=== PATIENT | male | born 1965 ===

== ENCOUNTER 2016-10-16 05:48 | Inpatient (IN) | payer OTHER ==
[2016-10-16] MEDS ORDERED: Iohexol 240 (50 ml) PO ONE (06:23)
[2016-10-16] MEDS ORDERED: Morphine 4 MG/ML VIAL ONE (06:30)
--- NOTE | 2016-10-16 06:42 | ED PDOC ---
HPI: Abdomen Time Seen by Provider: 10/16/16 05:49 Chief Complaint (Nursing): Abdominal Pain Chief Complaint (Provider): Back, abdominal, and chest pain History Per: Patient History/Exam Limitations: no limitations Onset/Duration Of Symptoms: Hrs Additional Complaint(s): Patient is a 50 year old male presenting to the emergency department for abdominal, chest, and back pain that started this morning. Reports that symptoms are the same when eating. Denies fever, vomiting, diarrhea, diabetes, asthma, surgical history, and allergies. PCP: none provided. Past Medical History Reviewed: Historical Data, Nursing Documentation, Vital Signs Vital Signs: Last Vital Signs Temp 99 F 10/17/16 16:13 Pulse 70 10/17/16 16:13 Resp 18 10/17/16 16:13 BP 155/79 H 10/17/16 16:13 Pulse Ox 97 10/17/16 16:13 - Medical History PMH: Denies: Asthma, Diabetes - Surgical History Surgical History: No Surg Hx - Family History Family History: States: Unknown Family Hx - Social History Current smoker - smoking cessation education provided: No Ex-Smoker (has not smoked in the last 12 months): No Alcohol: Social Drugs: Denies - Home Medications Home Medications: Ambulatory Orders Medication Instructions Recorded No Known Home Med 10/16/16 - Allergies Allergies/Adverse Reactions: Allergies Allergy/AdvReac Type Severity Reaction Status Date / Time No Known Allergies Allergy Verified 10/16/16 06:11 Review of Systems ROS Statement: Except As Marked, All Systems Reviewed And Found Negative Constitutional: Negative for: Fever Cardiovascular: Positive for: Chest Pain Gastrointestinal: Positive for: Nausea, Abdominal Pain. Negative for: Vomiting , Diarrhea Musculoskeletal: Positive for: Back Pain Physical Exam - Reviewed Nursing Documentation Reviewed: Yes Vital Signs Reviewed: Yes - Physical Exam Appears: Positive for: No Acute Distress Head Exam: Positive for: ATRAUMATIC, NORMAL INSPECTION, NORMOCEPHALIC Skin: Positive for: Normal Color, Warm, Dry Eye Exam: Positive for: Scleral icterus (slightly) Neck: Positive for: Normal, Supple Cardiovascular/Chest: Positive for: Regular Rate, Rhythm. Negative for: Murmur Respiratory: Positive for: Normal Breath Sounds. Negative for: Accessory Muscle Use, Respiratory Distress Gastrointestinal/Abdominal: Positive for: Soft, Tenderness (mild tenderness on epigastric area) Neurologic/Psych: Positive for: Alert, Oriented - Laboratory Results Result Diagrams: 10/17/16 05:30 10/17/16 05:30 - ECG O2 Sat by Pulse Oximetry: 98 (RA) Pulse Ox Interpretation: Normal Medical Decision Making Medical Decision Making: Time: 06:22 Initial Impression: abdominal pain rule out pancreatitis and possible jaundice Initial Plan: -Abdominal/pelvis CT Scan -Labs -Pepcid 20 mg IVP -Urine Culture -Urinalysis -Reevaluation Scribe Attestation: Documented by Monica Bird, acting as a scribe for Patric Duong MD Provider Scribe Attestation: All medical record entries made by the Scribe were at my direction and personally dictated by me. I have reviewed the chart and agree that the record accurately reflects my personal performance of the history, physical exam, medical decision making, and the department course for this patient. I have also personally directed, reviewed, and agree with the discharge instructions and disposition. Disposition - Clinical Impression Clinical Impression: Acute pancreatitis - Patient ED Disposition Is Patient to be Admitted: Transfer of Care - Disposition Disposition: Transfer of Care Disposition Time: 07:00 Condition: GUARDED Patient Signed Over To: Iris Lloyd
[2016-10-16 06:44] LABS: BASO % 0.1 % (0.0-2.0); EOS % 0.1 % (0.0-4.0); HEMATOCRIT 42.2 % (35.0-51.0); LYMPH % 8.6 % (20.0-40.0); MEAN CELL VOLUME 89.1 fl (80.0-94.0); MEAN CORPUSCULAR HEMOGLOBIN 30.2 pg (27.0-31.0); MEAN CORPUSCULAR HGB CONC 33.9 g/dL (33.0-37.0); MONO # 0.8 K/uL (0.0-0.8); NEUT # 9.7 K/uL (1.8-7.0); NEUT % 84.2 % (50.0-75.0); PLATELET COUNT 143 K/uL (130-400); RED CELL DISTRIBUTION WIDTH 13.1 % (11.5-14.5); WHITE BLOOD COUNT 11.5 K/uL (4.8-10.8)
[2016-10-16 06:53] LABS: ALB/GLOB RATIO 1.3 (1.0-2.1); ALKALINE PHOSPHATASE 174 U/L (38-126); ALT/SGPT 514 U/L (21-72); AST/SGOT 671 U/L (17-59); BILIRUBIN,TOTAL 3.3 mg/dl (0.2-1.3); BLOOD UREA NITROGEN 13 mg/dl (9-20); CARBON DIOXIDE 25 mmol/L (22-30); CHLORIDE 104 mmol/L (98-107); GFR AFRICAN-AMERICAN > 60; GLUCOSE,RANDOM 144 mg/dL (75-110); POTASSIUM 4.7 MMOL/L (3.6-5.0); SODIUM 139 mmol/l (132-148); TOTAL PROTEIN 7.7 G/DL (6.3-8.2)
[2016-10-16 07:02] LABS: RBC URINE 3 /hpf (0-3); URINE BACTERIA RARE (<OCC); URINE BILIRUBIN NEGATIVE (NEGATIVE); URINE BLOOD NEGATIVE (NEGATIVE); URINE COLOR YELLOW (YELLOW); URINE GLUCOSE (UA) NEG (Normal); URINE KETONE NEGATIVE (NEGATIVE); URINE LEUKOCYTE ESTERASE NEG Leu/uL (Negative); URINE PROTEIN NEGATIVE (NEGATIVE); URINE UROBILINOGEN 0.2-1.0 mg/dL (0.2-1.0); WBC URINE 1 /hpf (0-5)
[2016-10-16 07:30] LABS: LIPASE 34656 U/L (23-300)
--- NOTE | 2016-10-16 07:44 | ED PDOC ---
- Laboratory Results Result Diagrams: 10/16/16 06:26 10/16/16 06:26 - ECG O2 Sat by Pulse Oximetry: 98 (RA) Medical Decision Making Medical Decision Making: received patient from Dr. Duong. Patient has h/o EtOH use. Has elevated LFTs and abdominal pain. He is pending CT scan of the abdomen/pelvis. Lipase level > 35,000. Will need admission to hospitalist for further treatment 9.45a - CT scan shows acute pancreatitis. patient is hemodynamically stable. Will admit Disposition Doctor Will See Patient In The: Hospital - Clinical Impression Clinical Impression: Acute pancreatitis - POA Present On Arrival: None - Disposition Disposition: Routine/Home Disposition Time: 10:11 Condition: GUARDED
[2016-10-16] MEDS: Lactated Ringer's 1,000 ML IV SCH ×5 (08:15→23:45)
[2016-10-16 08:16] LABS: NEUTROPHIL 84 % (42-75); TOTAL CELLS COUNTED 100
[2016-10-16 08:40] LABS: VENOUS BLOOD GAS BASE EXCESS 4.2 mmol/L (0.0-2.0); VENOUS BLOOD GAS PCO2 55 mmHg (40-60); VENOUS BLOOD PH 7.36 (7.32-7.43)
[2016-10-16] MEDS ORDERED: Sodium Chloride 0.9% 50 ML IV ONE (08:44)
[2016-10-16] MEDS ORDERED: Iohexol 300 100 ML IJ ONE (08:44)
[2016-10-16 09:28] LABS: PARTIAL THROMBOPLASTIN TIME 24.2 Seconds (25.6-37.1)
--- NOTE | 2016-10-16 09:50 | CT ---
PROCEDURE: CT Abdomen and Pelvis with contrast HISTORY: abdominal pain COMPARISON: None. TECHNIQUE: Contrast dose: 95 cc of Omni 300 Radiation dose: Total exam DLP = 776 mGy-cm. This CT exam was performed using one or more of the following dose reduction techniques: Automated exposure control, adjustment of the mA and/or kV according to patient size, and/or use of iterative reconstruction technique. FINDINGS: LOWER THORAX: Unremarkable. LIVER: Unremarkable. No gross lesion or ductal dilatation. GALLBLADDER AND BILE DUCTS: Gallbladder is mildly distended. The common duct is normal in caliber. PANCREAS: There is diffuse swelling of the pancreas and a moderate amount of peripancreatic fluid and inflammation. Findings are consistent with acute pancreatitis. SPLEEN: Unremarkable. ADRENALS: Unremarkable. No mass. KIDNEYS AND URETERS: Unremarkable. No hydronephrosis. No solid mass. VASCULATURE: Unremarkable. No aortic aneurysm. BOWEL: Unremarkable. No obstruction. No gross mural thickening. APPENDIX: Normal appendix. PERITONEUM: Unremarkable. No free fluid. No free air. LYMPH NODES: Unremarkable. No enlarged lymph nodes. BLADDER: Unremarkable. REPRODUCTIVE: Unremarkable. BONES: No acute fracture. OTHER FINDINGS: None. IMPRESSION: There is diffuse swelling of the pancreas and a moderate amount of peripancreatic fluid and inflammation. Findings are consistent with acute pancreatitis.
--- NOTE | 2016-10-16 10:30 | CP.PCM.HP ---
History of Present Illness - History of Present Illness History of Present Illness: Chief Complaint: stomach pain HPI: 50 year old male with no past medical history presents with moderate to severe dull midepigastric abdominal pain radiating to the back about 10 hours ago. This was associated with anorexia and nausea, no emesis, chills. Pt states he used to be a regular drinker about 2 years ago, and now only drinks about once a week, 10 beers. The last drink patient had was 20 days ago, 10 beers. Patient has had this pain in the past 2 years ago but it would resolve. Pt is HD stable , NAD. In ER, LIPASE 60606, WBC 11.5, AST/ALT 671/514, BILI 3.3, vitals: 99.1 80 150/81 , 17 98% RA. CT scan + pancreatitis with peripancreatic fluid. Gallbladder mildly distended. ROS: as per HPI, all other systems reviewed and negative by me PMH: DENIES PSH: DENIES Family History: DENIES Social History: ETOH regular use 2 years ago, now drinks about once a week 10 beers at a time Home Medications: NONE Allergies: NKDA Temp Pulse Resp BP Pulse Ox 99.1 F 80 17 150/81 98 10/16/16 06:04 10/16/16 06:04 10/16/16 06:04 10/16/16 06:04 10/16/16 10:16 Constitutional- cooperative, awake, alert. Head- NCAT, PERRL Eye- PERRL, normal accommodation ENT- normal exam, MMM. Neck- normal inspection, supple, no JVD Respiratory- CTAB, no wheezes rales rhonchi Cardiovascular- RRR, +S1, +S2 no MRG GI/Abdominal- normal bowel sounds, soft Skin- warm, dry Extremities Exam- normal capillary refill, normal inspection Neurological Exam- alert, oriented Psych- normal mood, normal affect Labs: 10/16/16 06:26 10/16/16 06:26 PT 11.7 Seconds (9.8-13.1) 10/16/16 08:23 INR 1.1 (0.9-1.2) 10/16/16 08:23 APTT 24.2 Seconds (25.6-37.1) L 10/16/16 08:23 08/10/16/16 10/16/16 08:35 08:23 06:38 WBC RBC Hgb Hct MCV MCH MCHC RDW Plt Count MPV Neut % (Auto) Lymph % (Auto) [place] % (Auto) Eos % (Auto) Baso % (Auto) Neut # Lymph # [place] # Eos # Baso # Neutrophils % (Manual) Band Neutrophils % Lymphocytes % (Manual) Monocytes % (Manual) Platelet Estimate PT 11.7 INR 1.1 APTT 24.2 L pO2 15 L VBG pH 7.36 VBG pCO2 55 VBG HCO3 26.0 VBG Total CO2 32.8 H VBG O2 Sat (Calc) 24.0 L VBG Base Excess 4.2 H VBG Potassium 4.9 Glucose 153 H Lactate 1.5 FiO2 21.0 Sodium 135.0 Potassium Chloride 102.0 Carbon Dioxide Anion Gap BUN Creatinine Est GFR ( Amer) Est GFR (Non-Af Amer) Random Glucose Calcium Total Bilirubin AST ALT Alkaline Phosphatase Total Protein Albumin Globulin Albumin/Globulin Ratio Lipase Venous Blood Potassium 4.9 Urine Color Yellow Urine Clarity Cloudy Urine pH 7.0 Ur Specific [place] 1.013 Urine Protein Negative Urine Glucose (UA) Neg Urine Ketones Negative Urine Blood Negative Urine Nitrate Negative Urine Bilirubin Negative Urine Urobilinogen 0.2-1.0 Ur Leukocyte Esterase Neg Urine RBC (Auto) 3 Urine Microscopic WBC 1 Urine Bacteria Rare 10/16/16 10/16/16 06:26 06:26 WBC 11.5 H RBC 4.74 Hgb 14.3 Hct 42.2 MCV 89.1 MCH 30.2 MCHC 33.9 RDW 13.1 Plt Count 143 MPV 9.0 Neut % (Auto) 84.2 H Lymph % (Auto) 8.6 L [place] % (Auto) 7.0 Eos % (Auto) 0.1 Baso % (Auto) 0.1 Neut # 9.7 H Lymph # 1.0 [place] # 0.8 Eos # 0.0 Baso # 0.0 Neutrophils % (Manual) 84 H Band Neutrophils % 2 Lymphocytes % (Manual) 7 L Monocytes % (Manual) 7 Platelet Estimate Normal PT INR APTT pO2 VBG pH VBG pCO2 VBG HCO3 VBG Total CO2 VBG O2 Sat (Calc) VBG Base Excess VBG Potassium Glucose Lactate FiO2 Sodium 139 Potassium 4.7 Chloride 104 Carbon Dioxide 25 Anion Gap 16 BUN 13 Creatinine 0.8 Est GFR ( Amer) > 60 Est GFR (Non-Af Amer) > 60 Random Glucose 144 H Calcium 9.0 Total Bilirubin 3.3 H AST 671 H ALT 514 H Alkaline Phosphatase 174 H Total Protein 7.7 Albumin 4.4 Globulin 3.3 Albumin/Globulin Ratio 1.3 Lipase 77395 H Venous Blood Potassium Urine Color Urine Clarity Urine pH Ur Specific [place] Urine Protein Urine Glucose (UA) Urine Ketones Urine Blood Urine Nitrate Urine Bilirubin Urine Urobilinogen Ur Leukocyte Esterase Urine RBC (Auto) Urine Microscopic WBC Urine Bacteria Imaging Studies: CT ABD : + PANCREATITIS WITH PERIPANCREATIC FLUID Active Medications: Allergies No Known Allergies Allergy (Verified 10/16/16 06:11) Height & Weight Height 5 ft 7 in Weight 165 lb Start Date/Time Active Medications 10/16/16 07:45 Lactated Ringer's 1,000 ml IV 250 mls/hr 10/16/16 10:30 Ibuprofen [Motrin Tab] 400 mg PO Q6 PRN Ketorolac [Toradol] 30 mg IVP Q6 PRN 10/17/16 09:00 Enoxaparin [Lovenox] 40 mg SC DAILY Assessment and Plan: 50 year old male with no past medical history presents with moderate to severe dull midepigastric abdominal pain radiating to the back about 10 hours ago. This was associated with anorexia and nausea, no emesis, chills. Pt states he used to be a regular drinker about 2 years ago, and now only drinks about once a week, 10 beers. The last drink patient had was 20 days ago, 10 beers. Patient has had this pain in the past 2 years ago but it would resolve. Pt is HD stable , NAD. In ER, LIPASE 84254, WBC 11.5, AST/ALT 671/514, BILI 3.3, vitals: 99.1 80 150/81 , 17 98% RA. CT scan + pancreatitis with peripancreatic fluid. Gallbladder mildly distended. PANCREATITIS, alcoholic vs. gallstone pt intially presented with severe abd pain, LIPASE 03502, WBC 11.5, AST/ALT 671 /514, BILI 3.3, vitals: 99.1 80 150/81, 17 98% RA. CT scan + pancreatitis with peripancreatic fluid. Gallbladder mildly distended. Lactated Ringers @ 250cc/hr pt continues to be anorexic NPO monitor repeat CBC CMP ELEVATED TRANSAMINASES AST/ALT 671/514, BILI 3.3 monitor VTE PPX lovenox Present on Admission - Present on Admission Any Indicators Present on Admission: No Past Patient History - Past Social History Alcohol: Social Drugs: Denies - PULMONARY Hx Asthma: No - PSYCHIATRIC Hx Substance Use: No Meds Allergies/Adverse Reactions: Allergies Allergy/AdvReac Type Severity Reaction Status Date / Time No Known Allergies Allergy Verified 10/16/16 06:11 Results - Vital Signs Recent Vital Signs: Last Vital Signs Temp 99.1 F 10/16/16 06:04 Pulse 80 10/16/16 06:04 Resp 17 10/16/16 06:04 BP 150/81 10/16/16 06:04 Pulse Ox 98 10/16/16 10:16 - Labs Result Diagrams: 10/16/16 06:26 10/16/16 06:26
[2016-10-16] MEDS ORDERED: Pneumococcal 23-Valent Vaccine IM ONE (12:41)
[2016-10-17] MEDS: Lactated Ringer's 1,000 ML IV SCH ×3 (01:48→06:21)
[2016-10-17 06:11] LABS: BASO % 0.2 % (0.0-2.0); EOS # 0.1 K/uL (0.0-0.7); EOS % 1.8 % (0.0-4.0); LYMPH # 1.1 K/uL (1.0-4.3); LYMPH % 22.2 % (20.0-40.0); MEAN CELL VOLUME 90.4 fl (80.0-94.0); MEAN CORPUSCULAR HEMOGLOBIN 30.4 pg (27.0-31.0); MEAN CORPUSCULAR HGB CONC 33.6 g/dL (33.0-37.0); MEAN PLATELET VOLUME 9.2 fl (7.2-11.7); MONO # 0.4 K/uL (0.0-0.8); MONO % 8.2 % (0.0-10.0); NEUT # 3.2 K/uL (1.8-7.0); NEUT % 67.6 % (50.0-75.0); NRBC % 0.1 % (0.0-0.0); RED CELL DISTRIBUTION WIDTH 13.4 % (11.5-14.5); WHITE BLOOD COUNT 4.8 K/uL (4.8-10.8)
[2016-10-17 06:18] LABS: ALB/GLOB RATIO 1.1 (1.0-2.1); ALKALINE PHOSPHATASE 181 U/L (38-126); ALT/SGPT 355 U/L (21-72); AST/SGOT 212 U/L (17-59); BILIRUBIN,TOTAL 7.8 mg/dl (0.2-1.3); BLOOD UREA NITROGEN 7 mg/dl (9-20); CALCIUM 8.5 mg/dL (8.4-10.2); CARBON DIOXIDE 27 mmol/L (22-30); CHLORIDE 106 mmol/L (98-107); GFR AFRICAN-AMERICAN > 60; GLUCOSE,RANDOM 94 mg/dL (75-110); POTASSIUM 4.1 MMOL/L (3.6-5.0); SODIUM 140 mmol/l (132-148); TOTAL PROTEIN 6.6 G/DL (6.3-8.2)
[2016-10-17 06:30] LABS: PARTIAL THROMBOPLASTIN TIME 26.8 Seconds (25.6-37.1)
[2016-10-17] MEDS: Enoxaparin 40 mg Syringe SC SCH (08:54)
--- NOTE | 2016-10-17 15:56 | CP.PCM.PN ---
Objective - Vital Signs/Intake and Output Vital Signs (last 24 hours): Temp Pulse Resp BP Pulse Ox 98.8 F 72 20 137/80 97 10/17/16 07:49 10/17/16 07:49 10/17/16 07:49 10/17/16 07:49 10/17/16 07:49 - Medications Medications: Current Medications Enoxaparin Sodium (Lovenox) 40 mg SC DAILY BETY PRN Reason: Protocol Last Admin: 10/17/16 08:54 Dose: 40 mg Ibuprofen (Motrin Tab) 400 mg PO Q6 PRN PRN Reason: Fever >100.4 F Ketorolac Tromethamine (Toradol) 30 mg IVP Q6 PRN PRN Reason: PAIN 4-10 - Labs Labs: 10/17/16 05:30 10/17/16 05:30 PT 13.3 Seconds (9.8-13.1) H 10/17/16 05:30 INR 1.3 (0.9-1.2) H 10/17/16 05:30 APTT 26.8 Seconds (25.6-37.1) 10/17/16 05:30 Assessment and Plan - Assessment and Plan (Free Text) Assessment: 50 year old male with no past medical history presents with moderate to severe dull midepigastric abdominal pain radiating to the back about 10 hours ago. This was associated with anorexia and nausea, no emesis, chills. Pt states he used to be a regular drinker about 2 years ago, and now only drinks about once a week, 10 beers. The last drink patient had was 20 days ago, 10 beers. Patient has had this pain in the past 2 years ago but it would resolve. Pt is HD stable , NAD. In ER, LIPASE 79931, WBC 11.5, AST/ALT 671/514, BILI 3.3, vitals: 99.1 80 150/81 , 17 98% RA. CT scan + pancreatitis with peripancreatic fluid. Gallbladder mildly distended. PANCREATITIS, alcoholic vs. gallstone pt intially presented with severe abd pain, LIPASE 94424, WBC 11.5, AST/ALT 671 /514, BILI 3.3, vitals: 99.1 80 150/81, 17 98% RA. CT scan + pancreatitis with peripancreatic fluid. Gallbladder mildly distended. Lactated Ringers @ 250cc/hr pt continues to be anorexic NPO monitor repeat CBC CMP ELEVATED TRANSAMINASES AST/ALT 671/514, BILI 3.3 monitor VTE PPX lovenox
--- NOTE | 2016-10-17 18:12 | MRI ---
PROCEDURE: Magnetic Resonance Cholangiopancreatography HISTORY: COMPARISON: Comparison is made to the previous CT dated 10/16/2016.. TECHNIQUE: Multiplanar, multisequence MR images of the abdomen were obtained, including heavily T2 weighted MRCP images of the biliary system. Rotating maximum intensity projection images of the biliary system were generated. FINDINGS: MRCP: The common bile duct is of a normal caliber. No evidence of choledocholithiasis. No intrahepatic biliary ductal dilatation. LIVER: Unremarkable. GALLBLADDER: The gallbladder is mildly to moderately distended contains multiple small gallstones. There is no evidence of significant pericholecystic fluid or inflammatory changes to suggest acute cholecystitis. SPLEEN: Unremarkable. PANCREAS: The pancreas is again mildly enlarged surrounding with inflammatory changes suggestive of acute pancreatitis. The main pancreatic duct is not dilated. ADRENALS: Unremarkable. KIDNEYS: Unremarkable. AORTA: No aneurysm. ASCITES: There is a trace amount of ascites in the upper abdomen likely due to acute pancreatitis. OTHER FINDINGS: None. IMPRESSION: Distended gallbladder contains multiple gallstones without MRI evidence of acute cholecystitis. No evidence of choledocholithiasis. The biliary tree is not distended. Findings again suggestive of acute pancreatitis. Small amount of free fluid in the upper abdomen.
--- NOTE | 2016-10-18 08:07 | CP.PCM.PN ---
Subjective - Date & Time of Evaluation Date of Evaluation: 10/17/16 Time of Evaluation: 17:35 - Subjective Subjective: patient feeling improved, does have pain feeling hungry, no nausea, emesis will start clears bili elevated from 3 to 7, will order MRCP GI consult Dr. Dowd HD stable NAD Objective - Vital Signs/Intake and Output Vital Signs (last 24 hours): Temp Pulse Resp BP Pulse Ox 98.1 F 65 20 134/75 97 10/18/16 01:00 10/18/16 01:00 10/18/16 01:00 10/18/16 01:00 10/18/16 01:00 - Medications Medications: Current Medications Enoxaparin Sodium (Lovenox) 40 mg SC DAILY BETY PRN Reason: Protocol Last Admin: 10/17/16 08:54 Dose: 40 mg Ibuprofen (Motrin Tab) 400 mg PO Q6 PRN PRN Reason: Fever >100.4 F Ketorolac Tromethamine (Toradol) 30 mg IVP Q6 PRN PRN Reason: PAIN 4-10 - Labs Labs: 10/17/16 05:30 10/17/16 05:30 PT 13.3 Seconds (9.8-13.1) H 10/17/16 05:30 INR 1.3 (0.9-1.2) H 10/17/16 05:30 APTT 26.8 Seconds (25.6-37.1) 10/17/16 05:30 - Constitutional Appears: Non-toxic, No Acute Distress - Head Exam Head Exam: ATRAUMATIC, NORMOCEPHALIC - Eye Exam Eye Exam: EOMI, Normal appearance, PERRL Pupil Exam: NORMAL ACCOMODATION - ENT Exam ENT Exam: Mucous Membranes Moist, Normal Exam - Neck Exam Neck Exam: Full ROM, Normal Inspection - Respiratory Exam Respiratory Exam: Clear to Ausculation Bilateral, NORMAL BREATHING PATTERN. absent: Wheezes - Cardiovascular Exam Cardiovascular Exam: RRR, +S1, +S2. absent: Murmur - GI/Abdominal Exam GI & Abdominal Exam: Soft, Normal Bowel Sounds. absent: Tenderness, Mass - Extremities Exam Extremities Exam: Full ROM, Normal Capillary Refill - Back Exam Back Exam: absent: CVA tenderness (L), CVA tenderness (R) - Neurological Exam Neurological Exam: Alert, Awake, Oriented x3 - Psychiatric Exam Psychiatric exam: Normal Affect, Normal Mood - Skin Skin Exam: Dry, Warm Assessment and Plan - Assessment and Plan (Free Text) Plan: 50 year old male with no past medical history presents with moderate to severe dull midepigastric abdominal pain radiating to the back about 10 hours ago. This was associated with anorexia and nausea, no emesis, chills. Pt states he used to be a regular drinker about 2 years ago, and now only drinks about once a week, 10 beers. The last drink patient had was 20 days ago, 10 beers. Patient has had this pain in the past 2 years ago but it would resolve. Pt is HD stable , NAD. In ER, LIPASE 17756, WBC 11.5, AST/ALT 671/514, BILI 3.3, vitals: 99.1 80 150/81 , 17 98% RA. CT scan + pancreatitis with peripancreatic fluid. Gallbladder mildly distended. PANCREATITIS, alcoholic vs. gallstone pt intially presented with severe abd pain, LIPASE 17378, WBC 11.5, AST/ALT 671 /514, BILI 3.3, vitals: 99.1 80 150/81, 17 98% RA. CT scan + pancreatitis with peripancreatic fluid. Gallbladder mildly distended. Lactated Ringers @ 250cc/hr, complete, adv to clear liquids Bili elevated from 3 to 7 will order MRCP and GI consult with Dr. Dowd monitor repeat CBC CMP ELEVATED TRANSAMINASES AST/ALT 671/514, BILI 3.3 trending down monitor VTE PPX lovenox
[2016-10-18] MEDS: Enoxaparin 40 mg Syringe SC SCH (08:38)
--- NOTE | 2016-10-18 09:56 | CP.PCM.CON ---
History of Present Illness - History of Present Illness History of Present Illness: 50 yo male admitted with epigastric pain radiating to back lasting 10 hours. Associated with nausea but no vomiting. No previous health issues Review of Systems - Constitutional Constitutional: absent: Chills - EENT Eyes: absent: Blurred Vision Ears: absent: Decreased Hearing Nose/Mouth/Throat: absent: Epistaxis - Cardiovascular Cardiovascular: absent: Chest Pain - Respiratory Respiratory: absent: Dyspnea - Gastrointestinal Gastrointestinal: As Per HPI - Genitourinary Genitourinary: absent: Difficulty Urinating Past Patient History - Past Medical History & Family History Past Medical History?: Yes - Past Social History Alcohol: Social Drugs: Denies - PULMONARY Hx Asthma: No - MUSCULOSKELETAL/RHEUMATOLOGICAL Hx Falls: No - PSYCHIATRIC Hx Substance Use: No - ANESTHESIA Hx Anesthesia: No Hx Anesthesia Reactions: No Meds Allergies/Adverse Reactions: Allergies Allergy/AdvReac Type Severity Reaction Status Date / Time No Known Allergies Allergy Verified 10/16/16 06:11 - Medications Medications: Current Medications Enoxaparin Sodium (Lovenox) 40 mg SC DAILY BETY PRN Reason: Protocol Last Admin: 10/18/16 08:38 Dose: 40 mg Ibuprofen (Motrin Tab) 400 mg PO Q6 PRN PRN Reason: Fever >100.4 F Ketorolac Tromethamine (Toradol) 30 mg IVP Q6 PRN PRN Reason: PAIN 4-10 Physical Exam - Eye Exam Eye Exam: Scleral icterus Pupil Exam: PERRL - ENT Exam ENT Exam: Mucous Membranes Moist - Neck Exam Neck exam: Positive for: Normal Inspection - Respiratory Exam Respiratory Exam: NORMAL BREATHING PATTERN - Cardiovascular Exam Cardiovascular Exam: REGULAR RHYTHM, +S1, +S2 - GI/Abdominal Exam GI & Abdominal Exam: Normal Bowel Sounds, Soft, Tenderness Additional comments: moderate epigastric tendernes Results - Vital Signs Recent Vital Signs: Last Vital Signs Temp 98 F 10/18/16 08:35 Pulse 54 L 10/18/16 08:35 Resp 18 10/18/16 08:35 BP 119/75 10/18/16 08:35 Pulse Ox 97 10/18/16 08:35 - Labs Result Diagrams: 10/17/16 05:30 10/17/16 05:30 - Imaging and Cardiology CT scan - abdomen Status: Report reviewed by me MRI - abdomen Status: Report reviewed by me Assessment & Plan (1) Gallstone pancreatitis Assessment and Plan: Patient with gallstone pancreatitis. MRCP negative for CBD stone. Clinically appears stable. Today's labs pending. Surgery also seeing patient. Status: Acute (2) Acute pancreatitis Status: Acute
[2016-10-18 11:31] LABS: BASO % 0.3 % (0.0-2.0); EOS # 0.1 K/uL (0.0-0.7); EOS % 1.2 % (0.0-4.0); HEMATOCRIT 40.8 % (35.0-51.0); LYMPH # 1.4 K/uL (1.0-4.3); LYMPH % 26.1 % (20.0-40.0); MEAN CELL VOLUME 89.7 fl (80.0-94.0); MEAN CORPUSCULAR HEMOGLOBIN 29.9 pg (27.0-31.0); MEAN CORPUSCULAR HGB CONC 33.4 g/dL (33.0-37.0); MEAN PLATELET VOLUME 8.7 fl (7.2-11.7); MONO # 0.4 K/uL (0.0-0.8); MONO % 8.1 % (0.0-10.0); NEUT # 3.5 K/uL (1.8-7.0); NEUT % 64.3 % (50.0-75.0); RED CELL DISTRIBUTION WIDTH 13.4 % (11.5-14.5); WHITE BLOOD COUNT 5.5 K/uL (4.8-10.8)
--- NOTE | 2016-10-18 11:40 | CP.PCM.CON ---
<Karl Tapia - Last Filed: 10/18/16 11:35> History of Present Illness - History of Present Illness History of Present Illness: Surgery: Dr. Castillo CC: Abd pain HPI: 50M w. no PMH presents w. acute onset abd pain since Friday. Pt states that the pain was in the epigastric area, constant, described as burning, and radiated to the back. He denies any alleviating or aggravating factors. The pain was accompanied by nausea, no vomiting or diarrhea. He had similar pain several yrs ago which resolved on its own. He states that the current pain resolved yesterday and he feels much better today. He currently denies SAEED/ blurred vision, no CP/palpitations, no SOB/cough, no hematuria/dysuria, no dark colored urine, no pruritus. PMH: none PSH: none Meds: MAR reviewed NKDA Social: Occasional ETOH, no tobacco/drugs Fhx: non-contributory Review of Systems - Review of Systems All systems: reviewed and no additional remarkable complaints except (HPI) Past Patient History - Past Medical History & Family History Past Medical History?: Yes - Past Social History Alcohol: Social Drugs: Denies - PULMONARY Hx Asthma: No - MUSCULOSKELETAL/RHEUMATOLOGICAL Hx Falls: No - PSYCHIATRIC Hx Substance Use: No - ANESTHESIA Hx Anesthesia: No Hx Anesthesia Reactions: No Meds Allergies/Adverse Reactions: Allergies Allergy/AdvReac Type Severity Reaction Status Date / Time No Known Allergies Allergy Verified 10/16/16 06:11 - Medications Medications: Current Medications Enoxaparin Sodium (Lovenox) 40 mg SC DAILY [facility] PRN Reason: Protocol Last Admin: 10/18/16 08:38 Dose: 40 mg Ibuprofen (Motrin Tab) 400 mg PO Q6 PRN PRN Reason: Fever >100.4 F Ketorolac Tromethamine (Toradol) 30 mg IVP Q6 PRN PRN Reason: PAIN 4-10 Physical Exam - Constitutional Appears: Non-toxic, No Acute Distress - Head Exam Head Exam: ATRAUMATIC, NORMOCEPHALIC - Eye Exam Eye Exam: EOMI, Scleral icterus - ENT Exam ENT Exam: Mucous Membranes Moist, Normal External Ear Exam - Neck Exam Neck exam: Positive for: Full Rom - Respiratory Exam Respiratory Exam: NORMAL BREATHING PATTERN. absent: Accessory Muscle Use, Respiratory Distress - Cardiovascular Exam Cardiovascular Exam: REGULAR RHYTHM - GI/Abdominal Exam GI & Abdominal Exam: Soft, Tenderness (epigastric). absent: Distended, Firm, Guarding, Rebound, Rigid - Extremities Exam Extremities exam: Negative for: calf tenderness, pedal edema - Back Exam Back exam: absent: CVA tenderness (L), CVA tenderness (R) - Neurological Exam Neurological exam: Alert, Oriented x3 - Psychiatric Exam Psychiatric exam: Normal Affect, Normal Mood - Skin Skin Exam: Dry, Normal Color, Warm Additional comments: jaundice Results - Vital Signs Recent Vital Signs: Last Vital Signs Temp 98 F 10/18/16 08:35 Pulse 54 L 10/18/16 08:35 Resp 18 10/18/16 08:35 BP 119/75 10/18/16 08:35 Pulse Ox 97 10/18/16 08:35 - Labs Result Diagrams: 10/18/16 11:00 10/17/16 05:30 Labs: Laboratory Results - last 24 hr 10/18/16 11:00 WBC 5.5 RBC 4.55 Hgb 13.6 Hct 40.8 MCV 89.7 MCH 29.9 MCHC 33.4 RDW 13.4 Plt Count 137 MPV 8.7 Neut % (Auto) 64.3 Lymph % (Auto) 26.1 [place] % (Auto) 8.1 Eos % (Auto) 1.2 Baso % (Auto) 0.3 Neut # 3.5 Lymph # 1.4 [place] # 0.4 Eos # 0.1 Baso # 0.0 - Imaging and Cardiology CT scan - abdomen Status: Image reviewed by me, Report reviewed by me MRI - abdomen Status: Image reviewed by me, Report reviewed by me Assessment & Plan - Assessment and Plan (Free Text) Assessment: 50M w. gallstone pancreatitis -will give pt full liquid diet, and ADAT -Trend lipase, and LFTs -will plan for lap jacek when blood work is WNL -d/w attending Willie PGY3 <Baljinder Castillo - Last Filed: 10/19/16 17:46> Meds - Medications Medications: Current Medications Enoxaparin Sodium (Lovenox) 40 mg SC DAILY [facility] PRN Reason: Protocol Last Admin: 10/19/16 08:51 Dose: 40 mg Piperacillin Sod/Tazobactam (Sod 3.375 gm/ Sodium Chloride) 100 mls @ 100 mls/ hr IVPB Q12 [facility] Last Admin: 10/19/16 14:36 Dose: 100 mls/hr Ibuprofen (Motrin Tab) 400 mg PO Q6 PRN PRN Reason: Fever >100.4 F Ketorolac Tromethamine (Toradol) 30 mg IVP Q6 PRN PRN Reason: PAIN 4-10 Results - Vital Signs Recent Vital Signs: Last Vital Signs Temp 98 F 10/19/16 16:20 Pulse 64 10/19/16 16:20 Resp 18 10/19/16 16:20 BP 120/70 10/19/16 16:20 Pulse Ox 96 10/19/16 16:20 - Labs Result Diagrams: 10/18/16 11:00 10/19/16 11:00 Labs: Laboratory Results - last 24 hr 10/19/16 11:00 Sodium 139 Potassium 3.7 Chloride 103 Carbon Dioxide 26 Anion Gap 14 BUN 9 Creatinine 0.8 Est GFR ( Amer) > 60 Est GFR (Non-Af Amer) > 60 Random Glucose 174 H Calcium 9.0 Total Bilirubin 2.0 H AST 71 H D ALT 216 H Alkaline Phosphatase 186 H Total Protein 7.3 Albumin 3.9 Globulin 3.4 Albumin/Globulin Ratio 1.2 Attending/Attestation - Attestation I have personally seen and examined this patient.: Yes I have fully participated in the care of the patient.: Yes I have reviewed all pertinent clinical information: Yes Notes (Text): 10/19/16 17:46 Pt was seen and examined at bedside Agree with above note and assessment Pt with Cholelithiasis and GS pancreatitis Repeat LFTS C.w IV antibiotics Plan d.w pt in detail Risk and benefit explained in detail.
[2016-10-18 12:00] LABS: ALB/GLOB RATIO 1.1 (1.0-2.1); ALKALINE PHOSPHATASE 208 U/L (38-126); ALT/SGPT 270 U/L (21-72); AST/SGOT 103 U/L (17-59); BLOOD UREA NITROGEN 10 mg/dl (9-20); CALCIUM 8.9 mg/dL (8.4-10.2); CARBON DIOXIDE 25 mmol/L (22-30); CHLORIDE 105 mmol/L (98-107); GFR AFRICAN-AMERICAN > 60; GLUCOSE,RANDOM 108 mg/dL (75-110); LIPASE 939 U/L (23-300); POTASSIUM 4.2 MMOL/L (3.6-5.0); SODIUM 139 mmol/l (132-148); TOTAL PROTEIN 7.2 G/DL (6.3-8.2)
--- NOTE | 2016-10-18 15:01 | CP.PCM.PN ---
Subjective - Date & Time of Evaluation Date of Evaluation: 10/18/16 Time of Evaluation: 10:20 - Subjective Subjective: Pt seen and examined. Denied pain and able to tolerate full liquid diet. Objective - Vital Signs/Intake and Output Vital Signs (last 24 hours): Temp Pulse Resp BP Pulse Ox 98 F 54 L 18 119/75 97 10/18/16 08:35 10/18/16 08:35 10/18/16 08:35 10/18/16 08:35 10/18/16 08:35 - Medications Medications: Current Medications Enoxaparin Sodium (Lovenox) 40 mg SC DAILY [facility] PRN Reason: Protocol Last Admin: 10/18/16 08:38 Dose: 40 mg Ibuprofen (Motrin Tab) 400 mg PO Q6 PRN PRN Reason: Fever >100.4 F Ketorolac Tromethamine (Toradol) 30 mg IVP Q6 PRN PRN Reason: PAIN 4-10 - Labs Labs: 10/18/16 11:00 10/18/16 11:00 PT 13.3 Seconds (9.8-13.1) H 10/17/16 05:30 INR 1.3 (0.9-1.2) H 10/17/16 05:30 APTT 26.8 Seconds (25.6-37.1) 10/17/16 05:30 - Constitutional Appears: No Acute Distress - Head Exam Head Exam: ATRAUMATIC - Eye Exam Eye Exam: absent: Scleral icterus - ENT Exam ENT Exam: Mucous Membranes Moist - Neck Exam Neck Exam: absent: Meningismus - Respiratory Exam Respiratory Exam: absent: Rhonchi, Wheezes, Respiratory Distress - Cardiovascular Exam Cardiovascular Exam: REGULAR RHYTHM, +S1, +S2 - GI/Abdominal Exam GI & Abdominal Exam: Soft. absent: Tenderness - Rectal Exam Rectal Exam: Deferred - Neurological Exam Neurological Exam: Alert, Oriented x3 - Psychiatric Exam Psychiatric exam: Normal Affect - Skin Skin Exam: Dry, Intact Assessment and Plan - Assessment and Plan (Free Text) Assessment: 50 yo male with no significant PMH admitted because of severe epigastric pain radiating to the back associated with anorexia and nausea. 1. Gallstone Pancreatitis pain was relieved and patient able to tolerate full liquid diet MRCP was negative for CBD stone LFTs and Lipase were trending down patient appeared stable but Dr Castillo advised to keep patient for one more day for possible surgery on Friday or as outpatient within a week continue IV Unasyn 2. DVT prophylaxis Lovenox 40mg SC daily
[2016-10-19] MEDS: Enoxaparin 40 mg Syringe SC SCH (08:51)
[2016-10-19 12:00] LABS: ALB/GLOB RATIO 1.2 (1.0-2.1); ALKALINE PHOSPHATASE 186 U/L (38-126); ALT/SGPT 216 U/L (21-72); AST/SGOT 71 U/L (17-59); BLOOD UREA NITROGEN 9 mg/dl (9-20); CARBON DIOXIDE 26 mmol/L (22-30); CHLORIDE 103 mmol/L (98-107); GFR AFRICAN-AMERICAN > 60; GLUCOSE,RANDOM 174 mg/dL (75-110); POTASSIUM 3.7 MMOL/L (3.6-5.0); SODIUM 139 mmol/l (132-148); TOTAL PROTEIN 7.3 G/DL (6.3-8.2)
[2016-10-19] MEDS: Piperacillin/Tazobact 3.375 GM in Sodium Chloride 0.9% 100 ML IVPB SCH ×2 (14:36→20:52)
--- NOTE | 2016-10-19 15:26 | CP.PCM.PN ---
Subjective - Date & Time of Evaluation Date of Evaluation: 10/19/16 Time of Evaluation: 10:00 - Subjective Subjective: Pt seen and examined. Denied any complaint. Tolerating bland diet Objective - Vital Signs/Intake and Output Vital Signs (last 24 hours): Temp Pulse Resp BP Pulse Ox 97.9 F 58 L 18 127/78 97 10/19/16 08:35 10/19/16 08:35 10/19/16 08:35 10/19/16 08:35 10/19/16 08:35 - Medications Medications: Current Medications Enoxaparin Sodium (Lovenox) 40 mg SC DAILY [facility] PRN Reason: Protocol Last Admin: 10/19/16 08:51 Dose: 40 mg Piperacillin Sod/Tazobactam (Sod 3.375 gm/ Sodium Chloride) 100 mls @ 100 mls/ hr IVPB Q12 [facility] Ibuprofen (Motrin Tab) 400 mg PO Q6 PRN PRN Reason: Fever >100.4 F Ketorolac Tromethamine (Toradol) 30 mg IVP Q6 PRN PRN Reason: PAIN 4-10 - Labs Labs: 10/18/16 11:00 10/19/16 11:00 PT 13.3 Seconds (9.8-13.1) H 10/17/16 05:30 INR 1.3 (0.9-1.2) H 10/17/16 05:30 APTT 26.8 Seconds (25.6-37.1) 10/17/16 05:30 - Constitutional Appears: No Acute Distress - Head Exam Head Exam: ATRAUMATIC - Eye Exam Eye Exam: Scleral icterus (slightly icteric sclerae) - ENT Exam ENT Exam: Mucous Membranes Moist - Neck Exam Neck Exam: absent: Meningismus - Respiratory Exam Respiratory Exam: absent: Rhonchi, Wheezes, Respiratory Distress - Cardiovascular Exam Cardiovascular Exam: REGULAR RHYTHM, +S1, +S2 - GI/Abdominal Exam GI & Abdominal Exam: Soft. absent: Tenderness - Rectal Exam Rectal Exam: Deferred - Extremities Exam Extremities Exam: absent: Pedal Edema - Back Exam Back Exam: NORMAL INSPECTION - Neurological Exam Neurological Exam: Alert, Oriented x3 - Psychiatric Exam Psychiatric exam: Normal Affect Assessment and Plan - Assessment and Plan (Free Text) Assessment: 50 yo male with no significant PMH admitted because of severe epigastric pain radiating to the back associated with anorexia and nausea. 1. Gallstone Pancreatitis tolerating bland diet, denied any pain MRCP was negative for CBD stone LFTs continue to trend down; T Endy is down to 2 for possible surgery on Friday continue IV Unasyn 2. DVT prophylaxis Lovenox 40mg SC daily
--- NOTE | 2016-10-19 18:20 | CP.PCM.PN ---
<Maurizio Parada - Last Filed: 10/19/16 18:17> Subjective - Date & Time of Evaluation Date of Evaluation: 10/19/16 Time of Evaluation: 18:17 - Subjective Subjective: Surgery Pt s&e. NAENO. Denies f/c/n/v/d/cp/sob. Pain controlled. + amb, + void Objective - Vital Signs/Intake and Output Vital Signs (last 24 hours): Temp Pulse Resp BP Pulse Ox 98 F 64 18 120/70 96 10/19/16 16:20 10/19/16 16:20 10/19/16 16:20 10/19/16 16:20 10/19/16 16:20 - Medications Medications: Current Medications Enoxaparin Sodium (Lovenox) 40 mg SC DAILY [facility] PRN Reason: Protocol Last Admin: 10/19/16 08:51 Dose: 40 mg Piperacillin Sod/Tazobactam (Sod 3.375 gm/ Sodium Chloride) 100 mls @ 100 mls/ hr IVPB Q12 [facility] Last Admin: 10/19/16 14:36 Dose: 100 mls/hr Ibuprofen (Motrin Tab) 400 mg PO Q6 PRN PRN Reason: Fever >100.4 F Ketorolac Tromethamine (Toradol) 30 mg IVP Q6 PRN PRN Reason: PAIN 4-10 - Labs Labs: 10/18/16 11:00 10/19/16 11:00 PT 13.3 Seconds (9.8-13.1) H 10/17/16 05:30 INR 1.3 (0.9-1.2) H 10/17/16 05:30 APTT 26.8 Seconds (25.6-37.1) 10/17/16 05:30 - Constitutional Appears: No Acute Distress - Head Exam Head Exam: ATRAUMATIC, NORMAL INSPECTION, NORMOCEPHALIC - Eye Exam Eye Exam: EOMI, Normal appearance, PERRL Pupil Exam: NORMAL ACCOMODATION, PERRL - ENT Exam ENT Exam: Mucous Membranes Moist, Normal Exam - Neck Exam Neck Exam: Full ROM, Normal Inspection. absent: Lymphadenopathy - Respiratory Exam Respiratory Exam: Clear to Ausculation Bilateral, NORMAL BREATHING PATTERN - Cardiovascular Exam Cardiovascular Exam: REGULAR RHYTHM, +S1, +S2. absent: Murmur - GI/Abdominal Exam GI & Abdominal Exam: Soft, Tenderness, Normal Bowel Sounds. absent: Distended, Firm, Guarding, Rigid - Extremities Exam Extremities Exam: Full ROM, Normal Capillary Refill, Normal Inspection. absent : Joint Swelling, Pedal Edema - Back Exam Back Exam: NORMAL INSPECTION - Neurological Exam Neurological Exam: Alert, Awake, CN II-XII Intact, Normal Gait, Oriented x3 - Psychiatric Exam Psychiatric exam: Normal Affect, Normal Mood - Skin Skin Exam: Dry, Intact, Normal Color, Warm Assessment and Plan - Assessment and Plan (Free Text) Assessment: Gallstone Pancreatitis LFT trending down. -Diet per primary -Monitor labs -ABX -Pain /nausea control -OR when pancreatitis resolves, LFT normalized. BARBARA Castillo <Baljinder Castillo - Last Filed: 10/19/16 21:06> Objective - Vital Signs/Intake and Output Vital Signs (last 24 hours): Temp Pulse Resp BP Pulse Ox 98 F 64 18 120/70 96 10/19/16 16:20 10/19/16 16:20 10/19/16 16:20 10/19/16 16:20 10/19/16 16:20 - Medications Medications: Current Medications Enoxaparin Sodium (Lovenox) 40 mg SC DAILY [facility] PRN Reason: Protocol Last Admin: 10/19/16 08:51 Dose: 40 mg Piperacillin Sod/Tazobactam (Sod 3.375 gm/ Sodium Chloride) 100 mls @ 100 mls/ hr IVPB Q12 [facility] Last Admin: 10/19/16 20:52 Dose: 100 mls/hr Ibuprofen (Motrin Tab) 400 mg PO Q6 PRN PRN Reason: Fever >100.4 F Ketorolac Tromethamine (Toradol) 30 mg IVP Q6 PRN PRN Reason: PAIN 4-10 - Labs Labs: 10/18/16 11:00 10/19/16 11:00 PT 13.3 Seconds (9.8-13.1) H 10/17/16 05:30 INR 1.3 (0.9-1.2) H 10/17/16 05:30 APTT 26.8 Seconds (25.6-37.1) 10/17/16 05:30 Attending/Attestation - Attestation I have personally seen and examined this patient.: Yes I have fully participated in the care of the patient.: Yes I have reviewed all pertinent clinical information, including history, physical exam and plan: Yes Notes (Text): 10/19/16 21:05 Pt was seen and examined at bedside Agree with above note and assessment Pt with Cholelithiasis and GS pancreatitis Labs and radiology reviewed. Repeat LFTs, Lipase in am IV antibiotics Plan d.w pt in detail Risk and benefit explained in detail.
[2016-10-20 08:49] LABS: ALB/GLOB RATIO 1.2 (1.0-2.1); ALKALINE PHOSPHATASE 161 U/L (38-126); ALT/SGPT 181 U/L (21-72); AST/SGOT 59 U/L (17-59); BILIRUBIN,TOTAL 1.5 mg/dl (0.2-1.3); BLOOD UREA NITROGEN 15 mg/dl (9-20); CALCIUM 8.7 mg/dL (8.4-10.2); CARBON DIOXIDE 26 mmol/L (22-30); CHLORIDE 106 mmol/L (98-107); GFR AFRICAN-AMERICAN > 60; GLUCOSE,RANDOM 99 mg/dL (75-110); POTASSIUM 3.9 MMOL/L (3.6-5.0); SODIUM 141 mmol/l (132-148)
[2016-10-20] MEDS: Enoxaparin 40 mg Syringe SC SCH (08:52)
[2016-10-20] MEDS: Piperacillin/Tazobact 3.375 GM in Sodium Chloride 0.9% 100 ML IVPB SCH ×2 (08:52→20:58)
--- NOTE | 2016-10-20 11:14 | CP.PCM.PN ---
<Maurizio Parada - Last Filed: 10/20/16 11:12> Subjective - Date & Time of Evaluation Date of Evaluation: 10/20/16 Time of Evaluation: 11:13 - Subjective Subjective: Surgery Pt s&e. JOAN. Denies F/C/n/V/D/CP/SOB. Pain controlled. Objective - Vital Signs/Intake and Output Vital Signs (last 24 hours): Temp Pulse Resp BP Pulse Ox 97.7 F 61 18 124/78 96 10/20/16 07:30 10/20/16 07:30 10/20/16 07:30 10/20/16 07:30 10/20/16 07:30 - Medications Medications: Current Medications Enoxaparin Sodium (Lovenox) 40 mg SC DAILY [facility] PRN Reason: Protocol Last Admin: 10/20/16 08:52 Dose: 40 mg Piperacillin Sod/Tazobactam (Sod 3.375 gm/ Sodium Chloride) 100 mls @ 100 mls/ hr IVPB Q12 [facility] Last Admin: 10/20/16 08:52 Dose: 100 mls/hr Ibuprofen (Motrin Tab) 400 mg PO Q6 PRN PRN Reason: Fever >100.4 F Ketorolac Tromethamine (Toradol) 30 mg IVP Q6 PRN PRN Reason: PAIN 4-10 - Labs Labs: 10/18/16 11:00 10/20/16 06:00 PT 13.3 Seconds (9.8-13.1) H 10/17/16 05:30 INR 1.3 (0.9-1.2) H 10/17/16 05:30 APTT 26.8 Seconds (25.6-37.1) 10/17/16 05:30 - Constitutional Appears: No Acute Distress - Head Exam Head Exam: ATRAUMATIC, NORMAL INSPECTION, NORMOCEPHALIC - Eye Exam Eye Exam: EOMI, Normal appearance, PERRL Pupil Exam: NORMAL ACCOMODATION, PERRL - ENT Exam ENT Exam: Mucous Membranes Moist, Normal Exam - Neck Exam Neck Exam: Full ROM, Normal Inspection. absent: Lymphadenopathy - Respiratory Exam Respiratory Exam: Clear to Ausculation Bilateral, NORMAL BREATHING PATTERN - Cardiovascular Exam Cardiovascular Exam: REGULAR RHYTHM, +S1, +S2. absent: Murmur - GI/Abdominal Exam GI & Abdominal Exam: Soft, Tenderness, Normal Bowel Sounds. absent: Distended, Firm, Guarding, Rigid - Extremities Exam Extremities Exam: Full ROM, Normal Capillary Refill, Normal Inspection. absent : Joint Swelling, Pedal Edema - Back Exam Back Exam: NORMAL INSPECTION - Neurological Exam Neurological Exam: Alert, Awake, CN II-XII Intact, Normal Gait, Oriented x3 - Psychiatric Exam Psychiatric exam: Normal Affect, Normal Mood - Skin Skin Exam: Dry, Intact, Normal Color, Warm Assessment and Plan - Assessment and Plan (Free Text) Assessment: Gallstone Pancreatitis LFT trending down. -Diet per primary -Monitor labs -ABX -Pain /nausea control -OR when pancreatitis resolves and LFT normalize. DW Dr. Castillo <Baljinder Castillo - Last Filed: 10/20/16 14:25> Objective - Vital Signs/Intake and Output Vital Signs (last 24 hours): Temp Pulse Resp BP Pulse Ox 97.7 F 61 18 124/78 96 10/20/16 07:30 10/20/16 07:30 10/20/16 07:30 10/20/16 07:30 10/20/16 07:30 - Medications Medications: Current Medications Enoxaparin Sodium (Lovenox) 40 mg SC DAILY [facility] PRN Reason: Protocol Last Admin: 10/20/16 08:52 Dose: 40 mg Piperacillin Sod/Tazobactam (Sod 3.375 gm/ Sodium Chloride) 100 mls @ 100 mls/ hr IVPB Q12 [facility] Last Admin: 10/20/16 08:52 Dose: 100 mls/hr Ibuprofen (Motrin Tab) 400 mg PO Q6 PRN PRN Reason: Fever >100.4 F Ketorolac Tromethamine (Toradol) 30 mg IVP Q6 PRN PRN Reason: PAIN 4-10 - Labs Labs: 10/18/16 11:00 10/20/16 06:00 PT 13.3 Seconds (9.8-13.1) H 10/17/16 05:30 INR 1.3 (0.9-1.2) H 10/17/16 05:30 APTT 26.8 Seconds (25.6-37.1) 10/17/16 05:30 Attending/Attestation - Attestation I have personally seen and examined this patient.: Yes I have fully participated in the care of the patient.: Yes I have reviewed all pertinent clinical information, including history, physical exam and plan: Yes Notes (Text): 10/20/16 14:24 Pt was seen and examined at bedside Agree with above note and assessment Pt with Cholelithiasis and GS pancreatitis OR tomorrow for Lap Cholecystectomy Repeat LFTs and Lipase NPO, IVF IV antibiotics Plan d/w pt in detail Risk and benefit explained in detail.
--- NOTE | 2016-10-20 15:06 | CP.PCM.PN ---
Subjective - Date & Time of Evaluation Date of Evaluation: 10/20/16 Time of Evaluation: 14:20 - Subjective Subjective: Pt seen and examined. Denied any complaint. Aware of planned surgery tomorrow. Objective - Vital Signs/Intake and Output Vital Signs (last 24 hours): Temp Pulse Resp BP Pulse Ox 97.7 F 61 18 124/78 96 10/20/16 07:30 10/20/16 07:30 10/20/16 07:30 10/20/16 07:30 10/20/16 07:30 - Medications Medications: Current Medications Enoxaparin Sodium (Lovenox) 40 mg SC DAILY [facility] PRN Reason: Protocol Last Admin: 10/20/16 08:52 Dose: 40 mg Piperacillin Sod/Tazobactam (Sod 3.375 gm/ Sodium Chloride) 100 mls @ 100 mls/ hr IVPB Q12 [facility] Last Admin: 10/20/16 08:52 Dose: 100 mls/hr Ibuprofen (Motrin Tab) 400 mg PO Q6 PRN PRN Reason: Fever >100.4 F Ketorolac Tromethamine (Toradol) 30 mg IVP Q6 PRN PRN Reason: PAIN 4-10 - Labs Labs: 10/18/16 11:00 10/20/16 06:00 PT 13.3 Seconds (9.8-13.1) H 10/17/16 05:30 INR 1.3 (0.9-1.2) H 10/17/16 05:30 APTT 26.8 Seconds (25.6-37.1) 10/17/16 05:30 - Constitutional Appears: No Acute Distress - Head Exam Head Exam: ATRAUMATIC - Eye Exam Eye Exam: Scleral icterus (slightly icteric) - ENT Exam ENT Exam: Mucous Membranes Moist - Neck Exam Neck Exam: absent: Meningismus - Respiratory Exam Respiratory Exam: absent: Rhonchi, Wheezes, Respiratory Distress - Cardiovascular Exam Cardiovascular Exam: REGULAR RHYTHM, +S1, +S2 - GI/Abdominal Exam GI & Abdominal Exam: Soft. absent: Tenderness - Rectal Exam Rectal Exam: Deferred - Neurological Exam Neurological Exam: Alert, Oriented x3 - Psychiatric Exam Psychiatric exam: Normal Affect - Skin Skin Exam: Dry, Intact Assessment and Plan - Assessment and Plan (Free Text) Assessment: 50 yo male with no significant PMH admitted because of severe epigastric pain radiating to the back associated with anorexia and nausea. 1. Gallstone Pancreatitis tolerating bland diet, denied any pain MRCP was negative for CBD stone LFTs continue to trend down; T Endy is down to 1.5 for Lap Cholecystectomy tomorrow patient has negative cardiac history, denied chest pain or SOB, able to do his ADL prior to hospitalization he is cleared as low risk for surgery tomorrow NPO from midnight continue IV Unasyn 2. DVT prophylaxis hold Lovenox
--- NOTE | 2016-10-20 15:22 | CP.PCM.PN ---
Subjective - Date & Time of Evaluation Date of Evaluation: 10/20/16 Time of Evaluation: 15:20 - Subjective Subjective: Patient currently denying abdominal pain. Objective - Vital Signs/Intake and Output Vital Signs (last 24 hours): Temp Pulse Resp BP Pulse Ox 97.7 F 61 18 124/78 96 10/20/16 07:30 10/20/16 07:30 10/20/16 07:30 10/20/16 07:30 10/20/16 07:30 - Medications Medications: Current Medications Enoxaparin Sodium (Lovenox) 40 mg SC DAILY [facility] PRN Reason: Protocol Last Admin: 10/20/16 08:52 Dose: 40 mg Piperacillin Sod/Tazobactam (Sod 3.375 gm/ Sodium Chloride) 100 mls @ 100 mls/ hr IVPB Q12 [facility] Last Admin: 10/20/16 08:52 Dose: 100 mls/hr Ibuprofen (Motrin Tab) 400 mg PO Q6 PRN PRN Reason: Fever >100.4 F Ketorolac Tromethamine (Toradol) 30 mg IVP Q6 PRN PRN Reason: PAIN 4-10 - Labs Labs: 10/18/16 11:00 10/20/16 06:00 PT 13.3 Seconds (9.8-13.1) H 10/17/16 05:30 INR 1.3 (0.9-1.2) H 10/17/16 05:30 APTT 26.8 Seconds (25.6-37.1) 10/17/16 05:30 - Head Exam Head Exam: ATRAUMATIC - Eye Exam Eye Exam: PERRL Pupil Exam: PERRL - ENT Exam ENT Exam: Normal Exam - Neck Exam Neck Exam: Full ROM - Respiratory Exam Respiratory Exam: NORMAL BREATHING PATTERN - Cardiovascular Exam Cardiovascular Exam: +S1, +S2. absent: Murmur - GI/Abdominal Exam GI & Abdominal Exam: Soft. absent: Tenderness Assessment and Plan (1) Gallstone pancreatitis Assessment & Plan: Clinically doing better. LFTs and lipase going down. Manage as per surgery. Status: Acute (2) Acute pancreatitis Status: Acute
[2016-10-21 07:56] LABS: ALB/GLOB RATIO 1.2 (1.0-2.1); ALKALINE PHOSPHATASE 147 U/L (38-126); ALT/SGPT 165 U/L (21-72); AST/SGOT 70 U/L (17-59); BILIRUBIN,TOTAL 1.5 mg/dl (0.2-1.3); BLOOD UREA NITROGEN 14 mg/dl (9-20); CALCIUM 8.9 mg/dL (8.4-10.2); CARBON DIOXIDE 28 mmol/L (22-30); CHLORIDE 106 mmol/L (98-107); GFR AFRICAN-AMERICAN > 60; GLUCOSE,RANDOM 95 mg/dL (75-110); POTASSIUM 4.2 MMOL/L (3.6-5.0); SODIUM 142 mmol/l (132-148); TOTAL PROTEIN 7.1 G/DL (6.3-8.2)
[2016-10-21] MEDS: Piperacillin/Tazobact 3.375 GM in Sodium Chloride 0.9% 100 ML IVPB SCH ×2 (08:46→21:12)
[2016-10-21] MEDS ORDERED: Bupivacaine 0.5% Inj(30mL) ONE (11:44)
[2016-10-21] MEDS ORDERED: Lidocaine 1% Inj (20ml) ONE (11:44)
[2016-10-21] MEDS ORDERED: Succinylcholine 200 mg/10 ml Inj IV ONE (11:49)
[2016-10-21] MEDS ORDERED: Rocuronium 10 mg/ml (5 ml) ONE ×2 (11:49→12:29)
[2016-10-21] MEDS ORDERED: Propofol 10 mg/ml Inj (20 ML) ONE (11:49)
[2016-10-21] MEDS ORDERED: Midazolam 2 MG/2 ML VIAL ONE (11:52)
--- NOTE | 2016-10-21 12:04 | CP.PCM.PN ---
Subjective - Date & Time of Evaluation Date of Evaluation: 10/21/16 Time of Evaluation: 09:00 - Subjective Subjective: Patient seen and examined bedside. Feeling better. Hemodynamically stable, afebrile. No acute issues overnight NPO for laparascopic Cholecystectomy today Pain is well controlled Objective - Vital Signs/Intake and Output Vital Signs (last 24 hours): Temp Pulse Resp BP Pulse Ox 98.3 F 64 20 120/74 98 10/21/16 08:00 10/21/16 08:00 10/21/16 08:00 10/21/16 08:00 10/21/16 08:00 - Medications Medications: Current Medications Enoxaparin Sodium (Lovenox) 40 mg SC DAILY [facility] PRN Reason: Protocol Last Admin: 10/20/16 08:52 Dose: 40 mg Piperacillin Sod/Tazobactam (Sod 3.375 gm/ Sodium Chloride) 100 mls @ 100 mls/ hr IVPB Q12 [facility] Last Admin: 10/21/16 08:46 Dose: 100 mls/hr Ibuprofen (Motrin Tab) 400 mg PO Q6 PRN PRN Reason: Fever >100.4 F Ketorolac Tromethamine (Toradol) 30 mg IVP Q6 PRN PRN Reason: PAIN 4-10 - Labs Labs: 10/18/16 11:00 10/21/16 07:05 PT 13.3 Seconds (9.8-13.1) H 10/17/16 05:30 INR 1.3 (0.9-1.2) H 10/17/16 05:30 APTT 26.8 Seconds (25.6-37.1) 10/17/16 05:30 - Constitutional Appears: Non-toxic, No Acute Distress - Head Exam Head Exam: ATRAUMATIC, NORMAL INSPECTION, NORMOCEPHALIC - Eye Exam Eye Exam: EOMI, Normal appearance, PERRL Pupil Exam: NORMAL ACCOMODATION - ENT Exam ENT Exam: Mucous Membranes Moist, Normal Exam - Neck Exam Neck Exam: Full ROM, Normal Inspection - Respiratory Exam Respiratory Exam: Clear to Ausculation Bilateral, NORMAL BREATHING PATTERN. absent: Rales, Rhonchi, Wheezes - Cardiovascular Exam Cardiovascular Exam: REGULAR RHYTHM, RRR, +S1, +S2. absent: JVD - GI/Abdominal Exam GI & Abdominal Exam: Soft, Normal Bowel Sounds. absent: Guarding, Tenderness, Diminished Bowel Sounds, Rebound - Rectal Exam Rectal Exam: Deferred - Extremities Exam Extremities Exam: Full ROM, Normal Capillary Refill, Normal Inspection - Back Exam Back Exam: NORMAL INSPECTION - Neurological Exam Neurological Exam: Alert, Awake, CN II-XII Intact, Oriented x3 - Psychiatric Exam Psychiatric exam: Normal Affect, Normal Mood - Skin Skin Exam: Dry, Intact, Normal Color, Warm Assessment and Plan - Assessment and Plan (Free Text) Assessment: 50 yo male with no significant PMH admitted because of severe epigastric pain radiating to the back associated with anorexia and nausea.The work up showed elevated LFT-s, bilirubin and lipase > 13425.CT abdomen showed acute pancreatitis. patient admitted for acute gallstone pancreatitis, kept NPO , started on IVF ,GI and surgery consulted . MRCP showed cholelithiasis no CBD stones and no cholecystitis. Patient clinically improving , LFT-s, bilirubin and lipase trending down, For lap cholecystectomy today 1.Acute Gallstone Pancreatitis-- improving MRCP was negative for CBD stone LFTs , Total maria a and lipase trending down for Lap Cholecystectomy today continue IV Unasyn Will start diet post op 2. Cholelithiasis without cholecystitis for lap cholecystectomy 3. DVT prophylaxis Lovenox on hold for OR
[2016-10-21] MEDS ORDERED: Lidocaine 1% Inj (20ml) IJ ONE ×2 (12:13)
[2016-10-21] MEDS ORDERED: Lactated Ringer's 1,000 ML IV ONE ×2 (12:13→13:15)
[2016-10-21] MEDS ORDERED: Bupivacaine 0.5% 50 ML IJ ONE ×2 (12:13)
[2016-10-21] MEDS ORDERED: ePHEDrine 50 mg/ml Inj ONE (12:36)
[2016-10-21] MEDS ORDERED: Neostigmine Methylsulfate 3mg/3ml Syringe IV ONE (14:04)
[2016-10-21] MEDS ORDERED: Neostigmine Methylsulfate 2 MG/2 ML ML IV ONE (14:04)
[2016-10-21] MEDS ORDERED: Dexamethasone 4 mg/1 ml ONE (14:13)
--- NOTE | 2016-10-21 14:49 | PCM.SURG1 ---
Surgeon's Initial Post Op Note - Surgeon's Notes Surgeon: Dr. Castillo Senior Sales Compensation Analyst: Dr. Salazar PGY3, Dr. Cordova PGY1 Type of Anesthesia: General Endo Pre-Operative Diagnosis: Gallstone Pancreatitis Operative Findings: see operative report Post-Operative Diagnosis: Gallstone Pancreatitis Operation Performed: Laparoscopic Cholecystectomy Specimen/Specimens Removed: Gallbladder, gallstone Estimated Blood Loss: EBL {In ML}: 100 Blood Products Given: N/A Drains Used: Gordy Duong Post-Op Condition: Good Date of Surgery/Procedure: 10/21/16 Time of Surgery/Procedure: 12:15
[2016-10-21] MEDS ORDERED: HYDROmorphone 0.5 mg/0.5 ml ISec IVP PRN (14:53)
[2016-10-21] MEDS: HYDROmorphone 0.5 mg/0.5 ml ISec IVP PRN ×2 (15:05→15:15)
[2016-10-21] MEDS: Sodium Chloride 0.9% 1,000 ML IV SCH (16:00)
[2016-10-22] MEDS: Sodium Chloride 0.9% 1,000 ML IV SCH (00:26)
[2016-10-22 00:33] VITALS: RESP 20
[2016-10-22 04:51] VITALS: O2SAT 97
--- NOTE | 2016-10-22 04:58 | OP ---
PROCEDURE DATE: 10/21/2016 PREOPERATIVE DIAGNOSES: 1. Gallstone pancreatitis. 2. Cholelithiasis and possible chronic cholecystitis. 3. Possible postinfectious adhesions. POSTOPERATIVE DIAGNOSES: 1. Gallstone pancreatitis. 2. Cholelithiasis and possible chronic cholecystitis. 3. Possible postinfectious adhesions. 4. Hydrops of the gallbladder. PROCEDURE: 1. Laparoscopic cholecystectomy. 2. Laparoscopic extensive lysis of adhesion. 3. Laparoscopic drainage of gallbladder hydrops. 4. Laparoscopic Aspiration of Hydrops of Gallbladder SURGEON: Dr. Baljinder Castillo. YEAST CAKE CUTTER: Miriam Salazar. TYPE OF ANESTHESIA: General endotracheal tube anesthesia. ESTIMATED BLOOD LOSS: Around 50 mL. DRAIN: Large Guilherme drain was placed. COMPLICATIONS: None. INTRAOPERATIVE FINDINGS: The patient had an extensive postinfectious adhesions due to the gallstone pancreatitis and the patient had changes of chronic cholecystitis and cholelithiasis and the patient also had hydrops of the gallbladder and on intraoperative steps, this 50-year-old male was diagnosed with gallstone pancreatitis with cholelithiasis and possible chronic cholecystitis. The patient was consented for laparoscopic cholecystectomy, possible open, brought to the OR, placed supine on the operating table. After induction of the anesthesia, the abdomen was prepped and draped in the usual sterile fashion. The supraumbilical transverse incision was made after incising skin and subcutaneous tissue. The fascia was incised in the line of incision. Tobi port was placed. Pneumo was created. Another 12 mm port was placed in the midline below costal margin and two 5 mm port was placed in the midclavicular and anterior midline, after the grasper instrument was introduced, the patient was found to have extensive postinfectious adhesion. First with blunt and sharp dissection, extensive lysis of adhesion was done. Gallbladder appear to be extremely thickened and elevated and percutaneous aspiration of the gallbladder, there is a clear color bile was aspirated and after that dissection was continued and the gallbladder was freed up completely and the infundibulum of the gallbladder was identified, a cystic duct and cystic artery was identified. The patient found to have tortuous course of the cystic duct and cystic duct was dissected from the infundibulum up to the common bile duct and then cystic duct was clipped at three places and cut in between two clips nearby gallbladder and the gallbladder was dissected free from the gallbladder fossa placed in EndoCatch bag. The suction irrigation of the gallbladder fossa and the leak from the hydrops as well as perihepatic area was done and after proper hemostasis, the drain was placed and the drain was sutured to the skin and the specimen was sent to the department of pathology. All the part was taken out under the vision, pneuma was dilated. The umbilical port site and 12 mm port site was closed in 2 layers, the fascia with a 0-Vicryl interrupted suture, skin with a 4-0 Monocryl, and dry sterile dressing was applied. The patient tolerated the procedure well. Counts of the instrument was correct. There were no apparent complication. Baljinder Castillo MD MTDWinter
[2016-10-22 07:28] LABS: HEMATOCRIT 36.3 % (35.0-51.0); MEAN CELL VOLUME 89.6 fl (80.0-94.0); MEAN CORPUSCULAR HEMOGLOBIN 30.4 pg (27.0-31.0); RED CELL DISTRIBUTION WIDTH 12.9 % (11.5-14.5); WHITE BLOOD COUNT 6.8 K/uL (4.8-10.8)
[2016-10-22 07:40] LABS: ALB/GLOB RATIO 1.1 (1.0-2.1); ALKALINE PHOSPHATASE 124 U/L (38-126); ALT/SGPT 212 U/L (21-72); AST/SGOT 157 U/L (17-59); BILIRUBIN,TOTAL 1.5 mg/dl (0.2-1.3); BLOOD UREA NITROGEN 12 mg/dl (9-20); CALCIUM 8.5 mg/dL (8.4-10.2); CARBON DIOXIDE 27 mmol/L (22-30); CHLORIDE 104 mmol/L (98-107); GFR AFRICAN-AMERICAN > 60; GLUCOSE,RANDOM 94 mg/dL (75-110); LIPASE 437 U/L (23-300); POTASSIUM 4.2 MMOL/L (3.6-5.0); SODIUM 140 mmol/l (132-148); TOTAL PROTEIN 6.6 G/DL (6.3-8.2)
[2016-10-22 07:54] VITALS: BP 131/78; PULSE 66; TEMP 98.6
--- NOTE | 2016-10-22 07:59 | CP.PCM.PN ---
<Susi Salazar - Last Filed: 10/22/16 07:55> Subjective - Date & Time of Evaluation Date of Evaluation: 10/22/16 Time of Evaluation: 07:56 - Subjective Subjective: General Surgery - DR. Castillo Pt S&E. [place]. Pt complains of mild pain at the incisions s/p lap jacek yesterday. Otherwise he denies any complaints. He is tolerating liquid diet, will advance to regular. No N/V, F/C, SOb/Cp Objective - Vital Signs/Intake and Output Vital Signs (last 24 hours): Temp Pulse Resp BP Pulse Ox 98.6 F 66 20 131/78 97 10/22/16 07:53 10/22/16 07:53 10/22/16 07:53 10/22/16 07:53 10/22/16 07:53 - Medications Medications: Current Medications Enoxaparin Sodium (Lovenox) 40 mg SC DAILY BETY PRN Reason: Protocol Last Admin: 10/20/16 08:52 Dose: 40 mg Hydromorphone HCl (Dilaudid) 0.5 mg IVP Q15M PRN PRN Reason: Pain, moderate (4-7) Last Admin: 10/21/16 15:35 Dose: 0.5 mg Piperacillin Sod/Tazobactam (Sod 3.375 gm/ Sodium Chloride) 100 mls @ 100 mls/ hr IVPB Q12 BETY Last Admin: 10/21/16 21:12 Dose: 100 mls/hr Sodium Chloride (Sodium Chloride 0.9%) 1,000 mls @ 100 mls/hr IV .Q10H [facility] Stop: 10/22/16 10:59 Last Admin: 10/22/16 00:26 Dose: 100 mls/hr Ibuprofen (Motrin Tab) 400 mg PO Q6 PRN PRN Reason: Fever >100.4 F Ketorolac Tromethamine (Toradol) 30 mg IVP Q6 PRN PRN Reason: PAIN 4-10 Last Admin: 10/22/16 06:18 Dose: 30 mg - Labs Labs: 10/22/16 06:25 10/22/16 06:25 PT 13.3 Seconds (9.8-13.1) H 10/17/16 05:30 INR 1.3 (0.9-1.2) H 10/17/16 05:30 APTT 26.8 Seconds (25.6-37.1) 10/17/16 05:30 - Constitutional Appears: No Acute Distress - Head Exam Head Exam: ATRAUMATIC, NORMAL INSPECTION, NORMOCEPHALIC - Eye Exam Eye Exam: EOMI, Normal appearance - ENT Exam ENT Exam: Mucous Membranes Moist - Respiratory Exam Respiratory Exam: NORMAL BREATHING PATTERN. absent: Respiratory Distress - GI/Abdominal Exam GI & Abdominal Exam: Soft, Tenderness (appropriately around incisions). absent : Distended, Firm, Guarding, Rigid, Rebound Additional comments: dressings C/D/I Guilherme drain in ruq w/ serosanguinous drainage, 30cc - Neurological Exam Neurological Exam: Alert, Oriented x3 - Psychiatric Exam Psychiatric exam: Normal Affect, Normal Mood - Skin Skin Exam: Dry, Intact Assessment and Plan - Assessment and Plan (Free Text) Assessment: 50M s/p lap cholecystectomy for gallstone pancreatitis, POD #1 -Doing well post-operatively -Regular diet -AM Labs reviewed -Encourage OOB/Ambulation -Clear for DC home from surgical standpoint, will remove drain prior to D/C; Pt to f/u with Dr. Castillo in office in [address] Anna Salazar PGY3 <Baljinder Castillo B - Last Filed: 10/27/16 19:40> Objective - Vital Signs/Intake and Output Vital Signs (last 24 hours): Temp Pulse Resp BP Pulse Ox 98.6 F 66 20 131/78 97 10/22/16 07:53 10/22/16 07:53 10/22/16 07:53 10/22/16 07:53 10/22/16 07:53 - Labs Labs: 10/22/16 06:25 10/22/16 06:25 PT 13.3 Seconds (9.8-13.1) H 10/17/16 05:30 INR 1.3 (0.9-1.2) H 10/17/16 05:30 APTT 26.8 Seconds (25.6-37.1) 10/17/16 05:30 Attending/Attestation - Attestation I have personally seen and examined this patient.: Yes I have fully participated in the care of the patient.: Yes I have reviewed all pertinent clinical information, including history, physical exam and plan: Yes Notes (Text): 10/27/16 19:39 Pt was seen and examined at bedside Agree with above note and assessment
[2016-10-22] MEDS: Piperacillin/Tazobact 3.375 GM in Sodium Chloride 0.9% 100 ML IVPB SCH (08:27)
--- NOTE | 2016-10-22 10:17 | CP.PCM.DIS ---
Provider - Provider Date of Admission: 10/16/16 10:15 Attending physician: Tia Parada DO Primary care physician: None Consults: GI consult surgery consult Time Spent in preparation of Discharge (in minutes): 20 Hospital Course - Lab Results Lab Results: Most Recent Lab Values WBC 6.8 K/uL (4.8-10.8) 10/22/16 06:25 RBC 4.05 Mil/uL (4.40-5.90) L 10/22/16 06:25 Hgb 12.3 g/dL (12.0-18.0) 10/22/16 06:25 Hct 36.3 % (35.0-51.0) 10/22/16 06:25 MCV 89.6 fl (80.0-94.0) 10/22/16 06:25 MCH 30.4 pg (27.0-31.0) 10/22/16 06:25 MCHC 34.0 g/dL (33.0-37.0) 10/22/16 06:25 RDW 12.9 % (11.5-14.5) 10/22/16 06:25 Plt Count 150 K/uL (130-400) 10/22/16 06:25 MPV 8.7 fl (7.2-11.7) 10/18/16 11:00 Neut % (Auto) 64.3 % (50.0-75.0) 10/18/16 11:00 Lymph % (Auto) 26.1 % (20.0-40.0) 10/18/16 11:00 [place] % (Auto) 8.1 % (0.0-10.0) 10/18/16 11:00 Eos % (Auto) 1.2 % (0.0-4.0) 10/18/16 11:00 Baso % (Auto) 0.3 % (0.0-2.0) 10/18/16 11:00 Neut # 3.5 K/uL (1.8-7.0) 10/18/16 11:00 Lymph # 1.4 K/uL (1.0-4.3) 10/18/16 11:00 [place] # 0.4 K/uL (0.0-0.8) 10/18/16 11:00 Eos # 0.1 K/uL (0.0-0.7) 10/18/16 11:00 Baso # 0.0 K/uL (0.0-0.2) 10/18/16 11:00 Neutrophils % (Manual) 84 % (42-75) H 10/16/16 06:26 Band Neutrophils % 2 % (0-2) 10/16/16 06:26 Lymphocytes % (Manual) 7 % (20-50) L 10/16/16 06:26 Monocytes % (Manual) 7 % (0-10) 10/16/16 06:26 Platelet Estimate Normal (NORMAL) 10/16/16 06:26 PT 13.3 Seconds (9.8-13.1) H 10/17/16 05:30 INR 1.3 (0.9-1.2) H 10/17/16 05:30 APTT 26.8 Seconds (25.6-37.1) 10/17/16 05:30 pO2 15 mm/Hg (30-55) L 10/16/16 08:35 VBG pH 7.36 (7.32-7.43) 10/16/16 08:35 VBG pCO2 55 mmHg (40-60) 10/16/16 08:35 VBG HCO3 26.0 mmol/L 10/16/16 08:35 VBG Total CO2 32.8 mmol/L (22-28) H 10/16/16 08:35 VBG O2 Sat (Calc) 24.0 % (40-65) L 10/16/16 08:35 VBG Base Excess 4.2 mmol/L (0.0-2.0) H 10/16/16 08:35 VBG Potassium 4.9 mmol/L (3.6-5.2) 10/16/16 08:35 Sodium 135.0 mmol/L (132-148) 10/16/16 08:35 Chloride 102.0 mmol/L (98-107) 10/16/16 08:35 Glucose 153 mg/dL (75-110) H 10/16/16 08:35 Lactate 1.5 mmol/L (0.7-2.1) 10/16/16 08:35 FiO2 21.0 % 10/16/16 08:35 Sodium 140 mmol/l (132-148) 10/22/16 06:25 Potassium 4.2 MMOL/L (3.6-5.0) 10/22/16 06:25 Chloride 104 mmol/L (98-107) 10/22/16 06:25 Carbon Dioxide 27 mmol/L (22-30) 10/22/16 06:25 Anion Gap 13 (10-20) 10/22/16 06:25 BUN 12 mg/dl (9-20) 10/22/16 06:25 Creatinine 0.8 mg/dL (0.8-1.5) 10/22/16 06:25 Est GFR ( Amer) > 60 10/22/16 06:25 Est GFR (Non-Af Amer) > 60 10/22/16 06:25 Random Glucose 94 mg/dL (75-110) 10/22/16 06:25 Calcium 8.5 mg/dL (8.4-10.2) 10/22/16 06:25 Total Bilirubin 1.5 mg/dl (0.2-1.3) H 10/22/16 06:25 AST 157 U/L (17-59) H D 10/22/16 06:25 ALT 212 U/L (21-72) H D 10/22/16 06:25 Alkaline Phosphatase 124 U/L (38-126) 10/22/16 06:25 Total Protein 6.6 G/DL (6.3-8.2) 10/22/16 06:25 Albumin 3.5 g/dL (3.5-5.0) 10/22/16 06:25 Globulin 3.1 gm/dL (2.2-3.9) 10/22/16 06:25 Albumin/Globulin Ratio 1.1 (1.0-2.1) 10/22/16 06:25 Lipase 437 U/L (23-300) H 10/22/16 06:25 Venous Blood Potassium 4.9 mmol/L (3.6-5.2) 10/16/16 08:35 Urine Color Yellow (YELLOW) 10/16/16 06:38 Urine Clarity Cloudy (Clear) 10/16/16 06:38 Urine pH 7.0 (5.0-8.0) 10/16/16 06:38 Ur Specific [place] 1.013 (1.003-1.030) 10/16/16 06:38 Urine Protein Negative mg/dL (NEGATIVE) 10/16/16 06:38 Urine Glucose (UA) Neg mg/dL (Normal) 10/16/16 06:38 Urine Ketones Negative mg/dL (NEGATIVE) 10/16/16 06:38 Urine Blood Negative (NEGATIVE) 10/16/16 06:38 Urine Nitrate Negative (NEGATIVE) 10/16/16 06:38 Urine Bilirubin Negative (NEGATIVE) 10/16/16 06:38 Urine Urobilinogen 0.2-1.0 mg/dL (0.2-1.0) 10/16/16 06:38 Ur Leukocyte Esterase Neg [place]/uL (Negative) 10/16/16 06:38 Urine RBC (Auto) 3 /hpf (0-3) 10/16/16 06:38 Urine Microscopic WBC 1 /hpf (0-5) 10/16/16 06:38 Urine Bacteria Rare (<OCC) 10/16/16 06:38 - Hospital Course Hospital Course: 50 yo male with no significant PMH admitted because of severe epigastric pain radiating to the back associated with anorexia and nausea.The work up showed elevated LFT-s, bilirubin and lipase > 46207.CT abdomen showed acute pancreatitis. Patient admitted for acute gallstone pancreatitis, kept NPO , started on IVF ,GI and surgery consulted . MRCP showed cholelithiasis no CBD stones and no cholecystitis. Patient clinically improving , LFT-s, bilirubin and lipase trending down, Underwent lap cholecystectomy and postop doing well, tolerating diet , hemodynamically satble, afebrile JAS drain removed will duischrge patient home follow up with surgery in 1week will d/c on Augmentin Po for 1 week prophylactically 1.Acute Gallstone Pancreatitis-- improving lipase normalized MRCP was negative for CBD stone LFTs , Total maria a and lipase trending down s/p Lap Cholecystectomy 10/21 received IV Unasyn Will d/c on Augmentin PO and pain medication PRN follow up with surgery in 1 week 2. Cholelithiasis without cholecystitis s/p lap cholecystectomyJP drain removed stable follow up with surgery in 1 week Discharge Exam - Head Exam Head Exam: ATRAUMATIC, NORMAL INSPECTION, NORMOCEPHALIC - Eye Exam Eye Exam: EOMI, Normal appearance, PERRL Pupil Exam: NORMAL ACCOMODATION - ENT Exam ENT Exam: Mucous Membranes Moist, Normal Exam - Neck Exam Neck exam: Full Rom, Normal Inspection - Respiratory Exam Respiratory Exam: Clear to PA & Lateral, NORMAL BREATHING PATTERN. absent: Rales, Rhonchi, Wheezes - Cardiovascular Exam Cardiovascular Exam: REGULAR RHYTHM, RRR, +S1, +S2. absent: JVD - GI/Abdominal Exam GI & Abdominal Exam: Normal Bowel Sounds, Soft. absent: Distended, Guarding, Rebound, Tenderness - Rectal Exam Rectal Exam: Deferred - Extremities Exam Extremities exam: normal capillary refill, normal inspection, pedal pulses present - Back Exam Back exam: NORMAL INSPECTION - Neurological Exam Neurological exam: Alert, CN II-XII Intact, Oriented x3, Reflexes Normal - Skin Skin Exam: Dry, Intact, Normal Color, Warm Discharge Plan - Discharge Medications Prescriptions: Amoxicillin/Clavulanate [Augmentin 875 MG-125 MG] 1 tab PO Q12 #14 tab oxyCODONE/Acetaminophen [Percocet 5/325 mg Tab] 1 tab PO Q6 PRN #20 tab PRN Reason: Pain, Severe (8-10) - Follow Up Plan Condition: STABLE Disposition: HOME/ ROUTINE Patient education suggested?: Yes Instructions: Pancreatitis (DC), Laparoscopic Cholecystectomy (DC) Additional Instructions: shawn con dr palacios el 29 de rolando a las 11am completar el antibiotico por 7 days Referrals: Baljinder Castillo MD [Staff Provider] -
[2016-10-22] MEDS: Enoxaparin 40 mg Syringe SC SCH (11:46)
== END 2016-10-22 14:25 | disposition home or self-care (01) | DRG 494 ==
LOC: H.ER 05:48 → H.EROBSV 06:23 → OBSVTOIN 10:15 → H.ERHOLD 10:15 → H.MEDSURG1 11:24
PROVIDERS: ADMIT Student in an Organized Health Care Education/Training Program; ATTEND Student in an Organized Health Care Education/Training Program
PROC: 3E0234Z Introduction of Serum, Toxoid and Vaccine into Muscle, Percutaneous Approach (ICD-10-PCS; 2016-10-16)
PROC: 0DNW4ZZ Release Peritoneum, Percutaneous Endoscopic Approach (ICD-10-PCS; 2016-10-21)
PROC: 0F944ZZ Drainage of Gallbladder, Percutaneous Endoscopic Approach (ICD-10-PCS; 2016-10-21)
PROC: 0FT44ZZ Resection of Gallbladder, Percutaneous Endoscopic Approach (ICD-10-PCS; principal; 2016-10-21 12:30)
DX: K85.10 Biliary acute pancreatitis without necrosis or infection (principal); K82.1 Hydrops of gallbladder; K80.20 Calculus of gallbladder without cholecystitis without obstruction; Z23 Encounter for immunization; K66.0 Peritoneal adhesions (postprocedural) (postinfection)

== ENCOUNTER 2017-03-13 04:38 | Inpatient (IN) | payer OTHER ==
[2017-03-13 04:45] VITALS: BMI 27.0
[2017-03-13] MEDS ORDERED: Sodium Chloride 0.9% 1,000 ML IV STA ×3 (05:30→10:08)
--- NOTE | 2017-03-13 05:48 | ED PDOC ---
HPI: Abdomen Time Seen by Provider: 03/13/17 05:17 Chief Complaint (Nursing): Abdominal Pain Chief Complaint (Provider): Abdominal Pain History Per: Patient History/Exam Limitations: no limitations Onset/Duration Of Symptoms: Days (x2) Current Symptoms Are (Timing): Still Present Additional Complaint(s): 51 year old male, with a past medical history of a cholecystectomy, who presents to the ED complaining of abdominal pain with associated nausea x2 days. States his abdominal pain is constant, began at 3pm yesterday and is felt in his epigastric region and across the right middle and left middle portion of his abdomen. Patient reports not being able to eat since his symptoms began, but also reports a normal bowel movement at 11pm yesterday. Denies fever, chills , vomiting, or urinary symptoms. PMD: None provided Past Medical History Reviewed: Historical Data, Nursing Documentation, Vital Signs Vital Signs: Last Vital Signs Temp 98.5 F 03/13/17 05:08 Pulse 71 03/13/17 05:08 Resp 18 03/13/17 05:08 BP 151/80 H 03/13/17 05:08 Pulse Ox 97 03/13/17 06:40 - Medical History PMH: Denies: Asthma, Diabetes - Surgical History Surgical History: Cholecystectomy - Family History Family History: States: Unknown Family Hx - Home Medications Home Medications: Ambulatory Orders Medication Instructions Recorded Amoxicillin/Clavulanate [Augmentin 1 tab PO Q12 #14 tab 10/22/16 875 MG-125 MG] oxyCODONE/Acetaminophen [Percocet 1 tab PO Q6 PRN #20 tab 10/22/16 5/325 mg Tab] - Allergies Allergies/Adverse Reactions: Allergies Allergy/AdvReac Type Severity Reaction Status Date / Time No Known Allergies Allergy Verified 03/13/17 05:11 Review of Systems ROS Statement: Except As Marked, All Systems Reviewed And Found Negative Constitutional: Negative for: Fever, Chills Gastrointestinal: Positive for: Nausea, Abdominal Pain (epigastric and across right middle and left middle). Negative for: Vomiting Genitourinary Male: Negative for: Dysuria, Frequency, Incontinence Physical Exam - Reviewed Nursing Documentation Reviewed: Yes Vital Signs Reviewed: Yes - Physical Exam Appears: Positive for: Non-toxic, No Acute Distress Head Exam: Positive for: ATRAUMATIC, NORMAL INSPECTION, NORMOCEPHALIC Skin: Positive for: Normal Color, Warm, Dry. Negative for: Rash Eye Exam: Positive for: EOMI, Normal appearance, PERRL Neck: Positive for: Normal, Painless ROM, Supple Cardiovascular/Chest: Positive for: Regular Rate, Rhythm. Negative for: Murmur Respiratory: Positive for: Normal Breath Sounds. Negative for: Respiratory Distress Gastrointestinal/Abdominal: Positive for: Tenderness (epigastric, No RLQ tenderness) Back: Positive for: Normal Inspection. Negative for: L CVA Tenderness, R CVA Tenderness, Vertebral Tenderness Extremity: Positive for: Normal ROM. Negative for: Pedal Edema, Deformity Neurologic/Psych: Positive for: Alert, Oriented (x3). Negative for: Motor/ Sensory Deficits - ECG O2 Sat by Pulse Oximetry: 97 (RA) Pulse Ox Interpretation: Normal Medical Decision Making Medical Decision Making: Time: 05:32 Initial Impression: Gastritis vs. gas vs. pancreatitis Plan: --CMP --Lipase --CBC w/ differential --Reglan 10 mg IVPB --Sodium Chloride 0.9% 1,000 mls/hr --Protonix 40 mg IVP --Urinalysis --Reevaluation Time: 07:00 --Patient signed over to Dr. Shields pending labs and reassessment. Scribe Attestation: Documented by Raimundo Shin, acting as a scribe for Ford Goldberg MD. Provider Scribe Attestation: All medical record entries made by the Scribe were at my direction and personally dictated by me. I have reviewed the chart and agree that the record accurately reflects my personal performance of the history, physical exam, medical decision making, and the department course for this patient. I have also personally directed, reviewed, and agree with the discharge instructions and disposition. Disposition - Clinical Impression Clinical Impression: Abdominal pain - Patient ED Disposition Is Patient to be Admitted: Transfer of Care - Disposition Disposition: Transfer of Care Disposition Time: 07:00 Condition: STABLE Forms: [facility] (Moz[place]ican) Patient Signed Over To: Chantal Shields Handoff Comments: pending labs and reassessment
--- NOTE | 2017-03-13 07:11 | ED PDOC ---
- Laboratory Results Result Diagrams: 03/15/17 11:01 03/15/17 11:01 - ECG O2 Sat by Pulse Oximetry: 97 (RA) Pulse Ox Interpretation: Normal Medical Decision Making Medical Decision Making: Time: 07:00 Patient is endorsed to me by Dr. Ford Goldberg at this time. Pending labs and reevaluation. Labs reviewed: significant for elevated lipase, alk phos, LFTs, and bilirubin. Time: 10:08 Changed fluids to lactated ringers 1000 ml at 125 mls/hr. Paged financial institution vice president, Dr. Farias and Dr Lockhart. Dr Farias who will discuss the case with Dr Lockhart. Discussed with GI on-call, Dr. Dowd, who recommends ordering US gallbladder [abdomen limited] and MRI MRCP and Abdomen w/o contrast. Discussed case with hospitalist on-call, Dr. Mueller, patient will be admitted inpatient to Med/Surg for acute pancreatitis, choledocholithiasis. Scribe Attestation: Documented by Brigid Kidd, acting as a scribe for Chantal Shields MD Provider Scribe Attestation: All medical record entries made by the Scribe were at my direction and personally dictated by me. I have reviewed the chart and agree that the record accurately reflects my personal performance of the history, physical exam, medical decision making, and the department course for this patient. I have also personally directed, reviewed, and agree with the discharge instructions and disposition. Disposition Discussed With Dr.: Benja Dowd Doctor Will See Patient In The: Hospital Counseled Patient/Family Regarding: Studies Performed, Diagnosis - Clinical Impression Clinical Impression: Abdominal pain, Acute pancreatitis - POA Present On Arrival: None - Disposition Disposition: Admitted as In-Patient Disposition Time: 10:18 Condition: STABLE
[2017-03-13 07:37] LABS: BASO % 0.1 % (0.0-2.0); HEMOGLOBIN 14.8 g/dL (12.0-18.0); LYMPH # 1.1 K/uL (1.0-4.3); LYMPH % 11.3 % (20.0-40.0); MEAN CORPUSCULAR HEMOGLOBIN 29.8 pg (27.0-31.0); MEAN CORPUSCULAR HGB CONC 33.1 g/dL (33.0-37.0); MEAN PLATELET VOLUME 9.4 fl (7.2-11.7); MONO # 0.5 K/uL (0.0-0.8); NEUT % 83.6 % (50.0-75.0); NRBC % 0.1 % (0.0-0.0); RBC 4.97 Mil/uL (4.40-5.90); RED CELL DISTRIBUTION WIDTH 13.1 % (11.5-14.5); WHITE BLOOD COUNT 9.6 K/uL (4.8-10.8)
[2017-03-13 07:49] LABS: ALB/GLOB RATIO 1.2 (1.0-2.1); ALBUMIN 4.2 g/dL (3.5-5.0); ALT/SGPT 716 U/L (21-72); AST/SGOT 749 U/L (17-59); BLOOD UREA NITROGEN 11 mg/dl (9-20); CALCIUM 9.1 mg/dL (8.4-10.2); GFR AFRICAN-AMERICAN > 60; GFR NON-AFRICAN AMERICAN > 60
[2017-03-13 08:08] LABS: URINE BACTERIA OCC (<OCC); URINE BILIRUBIN NEGATIVE (NEGATIVE); URINE BLOOD MODERATE (NEGATIVE); URINE CLARITY CLOUDY (Clear); URINE COLOR AMBER (YELLOW); URINE GLUCOSE (UA) NEG (Normal); URINE LEUKOCYTE ESTERASE NEG Leu/uL (Negative); URINE NITRATE NEGATIVE (NEGATIVE); URINE PROTEIN 30 mg/dL (NEGATIVE)
[2017-03-13 08:47] LABS: LIPASE 35771 U/L (23-300)
[2017-03-13] MEDS ORDERED: Lactated Ringer's 1,000 ML IV SCH (10:15)
[2017-03-13] MEDS ORDERED: Piperacillin/Tazobact 3.375 GM in Sodium Chloride 0.9% 100 ML IVPB STA (10:19)
[2017-03-13] MEDS ORDERED: Piperacillin/Tazobact 3.375 gm Inj IVPB ONE (10:29)
[2017-03-13 10:45] LABS: VENOUS BLOOD GAS PCO2 46 mmHg (40-60); VENOUS BLOOD GAS PO2 39 mm/Hg (30-55)
--- NOTE | 2017-03-13 10:53 | CP.PCM.CON ---
History of Present Illness - History of Present Illness History of Present Illness: General Surgery: Dr Castillo Pt is a 51M, known to surgical service as recently had cholecystectomy for gallstone pancreatitis. Pt returns to ED today for worsening epigastric pain accompanied by nausea and diarrhea. Pt states diarrhea has been persistent for several months, and the nausea has come and gone sporadically during this time. However the epigastric pain is new and this just started yesterday. Since the pain has started pt has been unable to tolerate and solid foods, and has had severe nausea without emesis. He denies any fevers or chills. Pt states he has had minimal brbpr when wiping but he attributes this to his internal hemorrhoids. Pt denies any EtOH or drug use. Work-up in ED demonstrates pancreatitis. Review of Systems - Review of Systems All systems: reviewed and no additional remarkable complaints except (as per hpi ) Past Patient History - Past Medical History & Family History Past Medical History?: Yes - Past Social History Smoking Status: Never Smoked - PULMONARY Hx Asthma: No - MUSCULOSKELETAL/RHEUMATOLOGICAL Hx Falls: No - PSYCHIATRIC Hx Substance Use: No - SURGICAL HISTORY Hx Cholecystectomy: Yes - ANESTHESIA Hx Anesthesia: Yes Hx Anesthesia Reactions: No Meds Allergies/Adverse Reactions: Allergies Allergy/AdvReac Type Severity Reaction Status Date / Time No Known Allergies Allergy Verified 03/13/17 05:11 - Medications Medications: Current Medications Lactated Ringer's (Lactated Ringer's) 1,000 mls @ 125 mls/hr IV .Q8H BETY Sodium Chloride (Sodium Chloride 0.9%) 1,000 mls @ 1,000 mls/hr IV .Q1H STA Stop: 03/13/17 11:07 Last Admin: 03/13/17 10:21 Dose: 1,000 mls/hr Piperacillin Sod/Tazobactam (Sod 3.375 gm/ Sodium Chloride) 100 mls @ 100 mls/ hr IVPB STAT STA PRN Reason: Protocol Stop: 03/13/17 11:18 Last Admin: 03/13/17 10:34 Dose: 100 mls/hr Physical Exam - Constitutional Appears: Non-toxic, No Acute Distress - Eye Exam Eye Exam: Conjunctival injection. absent: Scleral icterus - ENT Exam ENT Exam: Mucous Membranes Dry - Respiratory Exam Respiratory Exam: absent: Accessory Muscle Use, Respiratory Distress - Cardiovascular Exam Cardiovascular Exam: REGULAR RHYTHM. absent: Tachycardia - GI/Abdominal Exam GI & Abdominal Exam: Soft, Tenderness (epigastric). absent: Distended, Firm, Guarding, Hernia - Rectal Exam Rectal Exam: Deferred - Extremities Exam Extremities exam: Negative for: pedal edema - Neurological Exam Neurological exam: Alert, Oriented x3 - Psychiatric Exam Psychiatric exam: Normal Affect, Normal Mood - Skin Skin Exam: Normal Color, Warm Results - Vital Signs Recent Vital Signs: Last Vital Signs Temp 98.5 F 03/13/17 05:08 Pulse 71 03/13/17 08:32 Resp 16 03/13/17 08:32 BP 147/83 03/13/17 08:32 Pulse Ox 97 03/13/17 10:21 - Labs Result Diagrams: 03/13/17 05:50 03/13/17 05:50 Labs: Laboratory Results - last 24 hr 03/13/17 03/13/17 03/13/17 05:50 05:50 05:50 WBC 9.6 RBC 4.97 Hgb 14.8 D Hct 44.7 MCV 90.0 MCH 29.8 MCHC 33.1 RDW 13.1 Plt Count 180 MPV 9.4 Neut % (Auto) 83.6 H Lymph % (Auto) 11.3 L [place] % (Auto) 5.0 Eos % (Auto) 0.0 Baso % (Auto) 0.1 Neut # 8.0 H Lymph # 1.1 [place] # 0.5 Eos # 0.0 Baso # 0.0 pO2 VBG pH VBG pCO2 VBG HCO3 VBG Total CO2 VBG O2 Sat (Calc) VBG Base Excess VBG Potassium A-a O2 Difference Glucose Lactate FiO2 Crit Value Called To Crit Value Called By Crit Value Read Back Blood Gas Notified Time Sodium 141 Potassium 3.7 Chloride 103 Carbon Dioxide 27 Anion Gap 15 BUN 11 Creatinine 0.7 L Est GFR ( Amer) > 60 Est GFR (Non-Af Amer) > 60 Random Glucose 148 H Calcium 9.1 Total Bilirubin 3.6 H AST 749 H ALT 716 H D Alkaline Phosphatase 217 H Total Protein 7.7 Albumin 4.2 Globulin 3.5 Albumin/Globulin Ratio 1.2 Lipase 17144 H Venous Blood Potassium Urine Color Unique Urine Clarity Cloudy Urine pH 6.0 Ur Specific [place] 1.015 Urine Protein 30 Urine Glucose (UA) Neg Urine Ketones Negative Urine Blood Moderate Urine Nitrate Negative Urine Bilirubin Negative Urine Urobilinogen 2.0 Ur Leukocyte Esterase Neg Urine RBC (Auto) 3 Urine Microscopic WBC 2 Urine Bacteria Occ H 03/13/17 10:30 WBC RBC Hgb Hct MCV MCH MCHC RDW Plt Count MPV Neut % (Auto) Lymph % (Auto) [place] % (Auto) Eos % (Auto) Baso % (Auto) Neut # Lymph # [place] # Eos # Baso # pO2 39 VBG pH 7.40 VBG pCO2 46 VBG HCO3 26.6 VBG Total CO2 29.9 H VBG O2 Sat (Calc) 82.3 H VBG Base Excess 3.0 H VBG Potassium 3.7 A-a O2 Difference 53.0 Glucose 128 H Lactate 0.9 FiO2 21.0 Crit Value Called To Aime padilla Crit Value Called By 15 Crit Value Read Back Y Blood Gas Notified Time 1045 Sodium 137.0 Potassium Chloride 106.0 Carbon Dioxide Anion Gap BUN Creatinine Est GFR ( Amer) Est GFR (Non-Af Amer) Random Glucose Calcium Total Bilirubin AST ALT Alkaline Phosphatase Total Protein Albumin Globulin Albumin/Globulin Ratio Lipase Venous Blood Potassium 3.7 Urine Color Urine Clarity Urine pH Ur Specific [place] Urine Protein Urine Glucose (UA) Urine Ketones Urine Blood Urine Nitrate Urine Bilirubin Urine Urobilinogen Ur Leukocyte Esterase Urine RBC (Auto) Urine Microscopic WBC Urine Bacteria Assessment & Plan - Assessment and Plan (Free Text) Assessment: 51M with pancreatitis of unknown etiology Plan: abdominal US MRCP GI evaluation aggressive IVF hydration pain control/anti-emetics PRN check Triglycerides possible further imaging/work-up pending attending recs will d/w Dr Anna Farias, PGY3
[2017-03-13] MEDS ORDERED: Sodium Chloride 0.9% 1,000 ML IV SCH (12:00)
--- NOTE | 2017-03-13 12:24 | US ---
HISTORY: abdominal pain sp jacek acute pancreatitis COMPARISON: Correlation is made to MRCP dated 10/17/[address] scan of the abdomen pelvis dated 10/16/2016. TECHNIQUE: Sonographic evaluation of the right upper quadrant of the abdomen. FINDINGS: LIVER: Enlarged, measuring 19.5 cm in length. Normal echogenicity of the liver parenchyma. No mass. No intrahepatic bile duct dilatation. GALLBLADDER: Interval cholecystectomy. COMMON BILE DUCT: Measures 5 mm. No stones. No dilatation. PANCREAS: Not well-visualized. RIGHT KIDNEY: Measures 11.6 x 5.9 x 4.4 cm in length. Normal echogenicity. No calculus, mass, or hydronephrosis. AORTA: No aneurysmal dilatation. IVC: Unremarkable. OTHER FINDINGS: None . IMPRESSION: Hepatomegaly. Interval cholecystectomy.
[2017-03-13] MEDS ORDERED: Influenza Vaccine 18yr & older 0.5 ML/45 MCG SYR IM ONE (12:49)
[2017-03-13] MEDS: Lactated Ringer's 1,000 ML IV SCH ×4 (13:16→21:41)
[2017-03-13] MEDS: HYDROmorphone 0.5 mg/0.5 ml ISec IVP PRN (15:00)
[2017-03-13] MEDS: Piperacillin/Tazobact 3.375 GM in Sodium Chloride 0.9% 100 ML IVPB SCH ×2 (15:47→21:42)
--- NOTE | 2017-03-13 15:53 | CP.PCM.HP ---
History of Present Illness - History of Present Illness History of Present Illness: This is a 51 year old male with a past medical history significant for gallbladder disease, s/p cholecystectomy, who presents to the ED with the complaint of sudden, severe epigastric abdominal pain beginning this morning at 3 AM. The pain is sharp, constant, and radiates to his back. He feels that spicy food he ate for dinner yesterday evening is what started his pain. It is associated with nausea since this morning. In the ED, the patient's vitals were stable. Laboratory results reveal a normal WBC, elevated neutrophil count of 8.0 , Total bilirubin of 3.6, AST of 749, ALT of 716, Alkaline phosphatase of 217, [place] [address]. Abdominal ultrasound reveals Enlarged liver of 19.5 cm with normal echogenicity of the liver parenchyma. Dr. Castillo, surgeon, was consulted from the ED along with Dr. Dowd, GI. MRCP was ordered and is now pending for further workup of possible choledocholithiasis and other differentials of his pancreatitis in the setting of elevated bilirubin and AST/ALT. He was given 2 liters of normal saline in the ED and is continued on agressive IV fluids. The patient is admitted for further workup and management of pancreatitis. Patient denies fever/chills/ vomiting/diarrhea/recent travel/headache. Last BM was 11 PM yesterday evening. Present on Admission - Present on Admission Any Indicators Present on Admission: No History of DVT/PE: No History of Uncontrolled Diabetes: No Review of Systems - Review of Systems Review of Systems: A 12 point review of systems was conducted and found to be negative other than what was mentioned in HPI. Past Patient History - Past Medical History & Family History Past Medical History?: Yes - Past Social History Smoking Status: Never Smoked - CARDIAC Hx Cardiac Disorders: No - PULMONARY Hx Respiratory Disorders: No Hx Asthma: No - NEUROLOGICAL Hx Neurological Disorder: No - HEENT Hx HEENT Problems: No - RENAL Hx Chronic Kidney Disease: No - ENDOCRINE/METABOLIC Hx Endocrine Disorders: No - HEMATOLOGICAL/ONCOLOGICAL Hx Blood Disorders: No - INTEGUMENTARY Hx Dermatological Problems: No - MUSCULOSKELETAL/RHEUMATOLOGICAL Hx Musculoskeletal Disorders: No Hx Falls: No - GASTROINTESTINAL Hx Gastrointestinal Disorders: No - GENITOURINARY/GYNECOLOGICAL Hx Genitourinary Disorders: No - PSYCHIATRIC Hx Psychophysiologic Disorder: No Hx Substance Use: No - SURGICAL HISTORY Hx Cholecystectomy: Yes - ANESTHESIA Hx Anesthesia: Yes Hx Anesthesia Reactions: No Meds Allergies/Adverse Reactions: Allergies Allergy/AdvReac Type Severity Reaction Status Date / Time No Known Allergies Allergy Verified 03/13/17 05:11 Physical Exam - Additional Findings Additional findings: Physical exam: Constitutional- cooperative, awake, alert Head- NCAT, PERRL Eye- PERRL, EOMI ENT- normal exam, MMM. Neck- normal inspection, supple, no JVD Respiratory- CTAB, no wheezes rales rhonchi Cardiovascular- RRR, +S1, +S2 no MRG GI/Abdominal- Diffusely tender to palpation, hypoactive bowel sounds, soft, no mass, no hsm Skin- warm, dry Extremities Exam- normal capillary refill, normal inspection Neurological Exam- alert, awake, oriented Psych- normal mood, normal affect Results - Vital Signs Recent Vital Signs: Last Vital Signs Temp 98.5 F 03/13/17 12:15 Pulse 68 03/13/17 12:15 Resp 18 03/13/17 12:15 BP 144/82 03/13/17 12:15 Pulse Ox 98 03/13/17 12:15 - Labs Result Diagrams: 03/13/17 05:50 03/13/17 05:50 Labs: Laboratory Results - last 24 hr 03/13/17 03/13/17 03/13/17 05:50 05:50 05:50 WBC 9.6 RBC 4.97 Hgb 14.8 D Hct 44.7 MCV 90.0 MCH 29.8 MCHC 33.1 RDW 13.1 Plt Count 180 MPV 9.4 Neut % (Auto) 83.6 H Lymph % (Auto) 11.3 L [place] % (Auto) 5.0 Eos % (Auto) 0.0 Baso % (Auto) 0.1 Neut # 8.0 H Lymph # 1.1 [place] # 0.5 Eos # 0.0 Baso # 0.0 pO2 VBG pH VBG pCO2 VBG HCO3 VBG Total CO2 VBG O2 Sat (Calc) VBG Base Excess VBG Potassium A-a O2 Difference Glucose Lactate FiO2 Crit Value Called To Crit Value Called By Crit Value Read Back Blood Gas Notified Time Sodium 141 Potassium 3.7 Chloride 103 Carbon Dioxide 27 Anion Gap 15 BUN 11 Creatinine 0.7 L Est GFR ( Amer) > 60 Est GFR (Non-Af Amer) > 60 Random Glucose 148 H Calcium 9.1 Total Bilirubin 3.6 H AST 749 H ALT 716 H D Alkaline Phosphatase 217 H Total Protein 7.7 Albumin 4.2 Globulin 3.5 Albumin/Globulin Ratio 1.2 Lipase 67693 H Venous Blood Potassium Urine Color Unique Urine Clarity Cloudy Urine pH 6.0 Ur Specific [place] 1.015 Urine Protein 30 Urine Glucose (UA) Neg Urine Ketones Negative Urine Blood Moderate Urine Nitrate Negative Urine Bilirubin Negative Urine Urobilinogen 2.0 Ur Leukocyte Esterase Neg Urine RBC (Auto) 3 Urine Microscopic WBC 2 Urine Bacteria Occ H 03/13/17 10:30 WBC RBC Hgb Hct MCV MCH MCHC RDW Plt Count MPV Neut % (Auto) Lymph % (Auto) [place] % (Auto) Eos % (Auto) Baso % (Auto) Neut # Lymph # [place] # Eos # Baso # pO2 39 VBG pH 7.40 VBG pCO2 46 VBG HCO3 26.6 VBG Total CO2 29.9 H VBG O2 Sat (Calc) 82.3 H VBG Base Excess 3.0 H VBG Potassium 3.7 A-a O2 Difference 53.0 Glucose 128 H Lactate 0.9 FiO2 21.0 Crit Value Called To Aime padilla Crit Value Called By 15 Crit Value Read Back Y Blood Gas Notified Time 1045 Sodium 137.0 Potassium Chloride 106.0 Carbon Dioxide Anion Gap BUN Creatinine Est GFR ( Amer) Est GFR (Non-Af Amer) Random Glucose Calcium Total Bilirubin AST ALT Alkaline Phosphatase Total Protein Albumin Globulin Albumin/Globulin Ratio Lipase Venous Blood Potassium 3.7 Urine Color Urine Clarity Urine pH Ur Specific [place] Urine Protein Urine Glucose (UA) Urine Ketones Urine Blood Urine Nitrate Urine Bilirubin Urine Urobilinogen Ur Leukocyte Esterase Urine RBC (Auto) Urine Microscopic WBC Urine Bacteria Assessment & Plan - Assessment and Plan (Free Text) Plan: ASSESSMENT Acute pancreatitis, with concern for possible developing cholangitis, r/o gallstone pancreatitis, r/o pancreatic cancer causing obstruction, other etiologies of pancreatitis - Admit to med/surg - General surgeon consultation with Dr. Castillo - NPO status- advance as per surgery/GI - Follow up blood cultures - Lactated ringer's 250 cc/hour as per surgery - MRCP pending for further workup - Consider pancreatic tumor markers if there is concern for pancreatic mass on MRCP - Zosyn 3.375 mg IVPB q6h until cholangitis is ruled out - Dilaudid 0.5 mg IV q3h PRN for severe pain - Triglyceride levels DVT prophylaxis - SCDs (heparin not initialized in the case of surgery)
--- NOTE | 2017-03-13 17:28 | MRI ---
MRCP Indication: Abdominal pain, pancreatitis Technique: Multiplanar, multisequence MR images of the abdomen were obtained, including heavily T2 weighted MRCP images of the biliary system. Rotating maximum intensity projection images of the biliary system were generated. A total of 538 images were submitted for review. Comparison: Limited abdominal ultrasound performed 03/13/17, MRCP performed 10/17/16 Findings: The patient is status postcholecystectomy. There is no intrahepatic biliary ductal dilatation. The common bile duct appears within normal limits in caliber and tapers distally. The pancreatic duct does not appear dilated. No filling defects are seen in the common bile duct or pancreatic duct. Peripancreatic fluid as well as fluid noted bilateral pericolic gutters. The pancreas appears edematous. Correlate clinically for acute pancreatitis. The noncontrast imaged portions of the liver, adrenal glands, kidneys, and spleen appear grossly unremarkable. No bulky abdominal lymphadenopathy is seen. No acute osseous abnormality is detected. Impression: No filling defects seen within the common bile duct which appears within normal limits of caliber. Cholecystectomy. Peripancreatic fluid as well as fluid noted bilateral pericolic gutters. The pancreas appears edematous. Correlate clinically for acute pancreatitis.
--- NOTE | 2017-03-14 00:15 | CP.PCM.CON ---
History of Present Illness - History of Present Illness History of Present Illness: 51 yo male with lap jacek in October c/o one day of increasing upper abdominal pain. Had pancreatitis in the past due to gallstones. At surgery multiple small gallstones were seen in the gallbladder lumen. Review of Systems - Constitutional Constitutional: absent: Chills - EENT Eyes: absent: Blurred Vision Ears: absent: Ear Pain Nose/Mouth/Throat: absent: Epistaxis - Cardiovascular Cardiovascular: absent: Chest Pain - Respiratory Respiratory: absent: Dyspnea - Gastrointestinal Gastrointestinal: As Per HPI Past Patient History - Past Medical History & Family History Past Medical History?: Yes - Past Social History Smoking Status: Never Smoked - CARDIAC Hx Cardiac Disorders: No - PULMONARY Hx Respiratory Disorders: No Hx Asthma: No - NEUROLOGICAL Hx Neurological Disorder: No - HEENT Hx HEENT Problems: No - RENAL Hx Chronic Kidney Disease: No - ENDOCRINE/METABOLIC Hx Endocrine Disorders: No - HEMATOLOGICAL/ONCOLOGICAL Hx Blood Disorders: No - INTEGUMENTARY Hx Dermatological Problems: No - MUSCULOSKELETAL/RHEUMATOLOGICAL Hx Musculoskeletal Disorders: No Hx Falls: No - GASTROINTESTINAL Hx Gastrointestinal Disorders: No - GENITOURINARY/GYNECOLOGICAL Hx Genitourinary Disorders: No - PSYCHIATRIC Hx Psychophysiologic Disorder: No Hx Substance Use: No - SURGICAL HISTORY Hx Cholecystectomy: Yes - ANESTHESIA Hx Anesthesia: Yes Hx Anesthesia Reactions: No Meds Allergies/Adverse Reactions: Allergies Allergy/AdvReac Type Severity Reaction Status Date / Time No Known Allergies Allergy Verified 03/13/17 05:11 - Medications Medications: Current Medications Hydromorphone HCl (Dilaudid) 0.5 mg IVP Q3H PRN PRN Reason: Pain, Mild (1-3) Last Admin: 03/13/17 15:00 Dose: 0.5 mg Lactated Ringer's (Lactated Ringer's) 1,000 mls @ 250 mls/hr IV .Q4H BETY Last Admin: 03/13/17 21:41 Dose: 250 mls/hr Piperacillin Sod/Tazobactam (Sod 3.375 gm/ Sodium Chloride) 100 mls @ 100 mls/ hr IVPB Q6 BETY PRN Reason: Protocol Last Admin: 03/13/17 21:42 Dose: 100 mls/hr Ondansetron HCl (Zofran Inj) 4 mg IVP Q6 PRN PRN Reason: Nausea/Vomiting Physical Exam - Head Exam Head Exam: ATRAUMATIC - Eye Exam Eye Exam: EOMI Pupil Exam: PERRL - ENT Exam ENT Exam: Mucous Membranes Moist - Respiratory Exam Respiratory Exam: Clear to Auscultation Bilateral - Cardiovascular Exam Cardiovascular Exam: REGULAR RHYTHM - GI/Abdominal Exam GI & Abdominal Exam: Distended, Normal Bowel Sounds, Soft, Tenderness Additional comments: marked distention and fullness upper abdomen Results - Vital Signs Recent Vital Signs: Last Vital Signs Temp 99.1 F 03/13/17 23:52 Pulse 87 03/13/17 23:52 Resp 20 03/13/17 23:52 BP 146/78 03/13/17 23:52 Pulse Ox 97 03/13/17 23:52 - Labs Result Diagrams: 03/13/17 05:50 03/13/17 05:50 Labs: Laboratory Results - last 24 hr 03/13/17 03/13/17 03/13/17 05:50 05:50 05:50 WBC 9.6 RBC 4.97 Hgb 14.8 D Hct 44.7 MCV 90.0 MCH 29.8 MCHC 33.1 RDW 13.1 Plt Count 180 MPV 9.4 Neut % (Auto) 83.6 H Lymph % (Auto) 11.3 L [place] % (Auto) 5.0 Eos % (Auto) 0.0 Baso % (Auto) 0.1 Neut # 8.0 H Lymph # 1.1 [place] # 0.5 Eos # 0.0 Baso # 0.0 pO2 VBG pH VBG pCO2 VBG HCO3 VBG Total CO2 VBG O2 Sat (Calc) VBG Base Excess VBG Potassium A-a O2 Difference Glucose Lactate FiO2 Crit Value Called To Crit Value Called By Crit Value Read Back Blood Gas Notified Time Sodium 141 Potassium 3.7 Chloride 103 Carbon Dioxide 27 Anion Gap 15 BUN 11 Creatinine 0.7 L Est GFR ( Amer) > 60 Est GFR (Non-Af Amer) > 60 Random Glucose 148 H Calcium 9.1 Total Bilirubin 3.6 H AST 749 H ALT 716 H D Alkaline Phosphatase 217 H Total Protein 7.7 Albumin 4.2 Globulin 3.5 Albumin/Globulin Ratio 1.2 Lipase 35071 H Venous Blood Potassium Urine Color Unique Urine Clarity Cloudy Urine pH 6.0 Ur Specific [place] 1.015 Urine Protein 30 Urine Glucose (UA) Neg Urine Ketones Negative Urine Blood Moderate Urine Nitrate Negative Urine Bilirubin Negative Urine Urobilinogen 2.0 Ur Leukocyte Esterase Neg Urine RBC (Auto) 3 Urine Microscopic WBC 2 Urine Bacteria Occ H 03/13/17 10:30 WBC RBC Hgb Hct MCV MCH MCHC RDW Plt Count MPV Neut % (Auto) Lymph % (Auto) [place] % (Auto) Eos % (Auto) Baso % (Auto) Neut # Lymph # [place] # Eos # Baso # pO2 39 VBG pH 7.40 VBG pCO2 46 VBG HCO3 26.6 VBG Total CO2 29.9 H VBG O2 Sat (Calc) 82.3 H VBG Base Excess 3.0 H VBG Potassium 3.7 A-a O2 Difference 53.0 Glucose 128 H Lactate 0.9 FiO2 21.0 Crit Value Called To Aime padilla Crit Value Called By 15 Crit Value Read Back Y Blood Gas Notified Time 1045 Sodium 137.0 Potassium Chloride 106.0 Carbon Dioxide Anion Gap BUN Creatinine Est GFR ( Amer) Est GFR (Non-Af Amer) Random Glucose Calcium Total Bilirubin AST ALT Alkaline Phosphatase Total Protein Albumin Globulin Albumin/Globulin Ratio Lipase Venous Blood Potassium 3.7 Urine Color Urine Clarity Urine pH Ur Specific [place] Urine Protein Urine Glucose (UA) Urine Ketones Urine Blood Urine Nitrate Urine Bilirubin Urine Urobilinogen Ur Leukocyte Esterase Urine RBC (Auto) Urine Microscopic WBC Urine Bacteria - Imaging and Cardiology MRI - abdomen Status: Image reviewed by me, Report reviewed by me US - abdomen Status: Report reviewed by me Assessment & Plan (1) Acute pancreatitis Assessment and Plan: Acute pancreatitis. No evidence of CBD stone n MRCP. Possibly it has passed. Follow clinically. Vigorous IV hydration with RL and adequate analgesia. NPO for now. Status: Acute
[2017-03-14] MEDS: Lactated Ringer's 1,000 ML IV SCH ×8 (02:46→23:00)
[2017-03-14] MEDS: Piperacillin/Tazobact 3.375 GM in Sodium Chloride 0.9% 100 ML IVPB SCH ×2 (04:38→11:30)
[2017-03-14 06:18] LABS: HEMOGLOBIN 13.5 g/dL (12.0-18.0); MEAN CELL VOLUME 89.7 fl (80.0-94.0); MEAN CORPUSCULAR HEMOGLOBIN 29.7 pg (27.0-31.0); MEAN CORPUSCULAR HGB CONC 33.1 g/dL (33.0-37.0); RBC 4.57 Mil/uL (4.40-5.90); WHITE BLOOD COUNT 9.7 K/uL (4.8-10.8)
[2017-03-14 07:11] LABS: ALB/GLOB RATIO 1.1 (1.0-2.1); ALBUMIN 3.5 g/dL (3.5-5.0); ALT/SGPT 441 U/L (21-72); AST/SGOT 247 U/L (17-59); BLOOD UREA NITROGEN 7 mg/dl (9-20); CALCIUM 8.3 mg/dL (8.4-10.2); GFR AFRICAN-AMERICAN > 60; GFR NON-AFRICAN AMERICAN > 60
--- NOTE | 2017-03-14 07:35 | CP.PCM.PN ---
Subjective - Date & Time of Evaluation Date of Evaluation: 03/14/17 Time of Evaluation: 07:34 - Subjective Subjective: General Surgery: Dr Castillo Pt S&E. Reports his pain is only mildly improved and still diffuse throughout the abdomen. Denies any nausea, vomiting, fevers or chills. States he is hungry. Discussed results of yesterday's imaging with pt. He understands plans for rehydration and that we will pursue further work-up if his pancreatitis does not resolve. Objective - Vital Signs/Intake and Output Vital Signs (last 24 hours): Temp Pulse Resp BP Pulse Ox 99.1 F 87 20 146/78 97 03/13/17 23:52 03/13/17 23:52 03/13/17 23:52 03/13/17 23:52 03/13/17 23:52 - Medications Medications: Current Medications Hydromorphone HCl (Dilaudid) 0.5 mg IVP Q3H PRN PRN Reason: Pain, Mild (1-3) Last Admin: 03/13/17 15:00 Dose: 0.5 mg Lactated Ringer's (Lactated Ringer's) 1,000 mls @ 250 mls/hr IV .Q4H BETY Last Admin: 03/14/17 03:30 Dose: Not Given Piperacillin Sod/Tazobactam (Sod 3.375 gm/ Sodium Chloride) 100 mls @ 100 mls/ hr IVPB Q6 BETY PRN Reason: Protocol Last Admin: 03/14/17 04:38 Dose: 100 mls/hr Ondansetron HCl (Zofran Inj) 4 mg IVP Q6 PRN PRN Reason: Nausea/Vomiting - Labs Labs: 03/14/17 05:55 03/14/17 05:55 - Constitutional Appears: Non-toxic, No Acute Distress - Head Exam Head Exam: NORMAL INSPECTION - Eye Exam Eye Exam: absent: Scleral icterus - Respiratory Exam Respiratory Exam: absent: Accessory Muscle Use, Respiratory Distress - Cardiovascular Exam Cardiovascular Exam: absent: Tachycardia - GI/Abdominal Exam GI & Abdominal Exam: Soft, Tenderness (diffuse, worse epigastric and LUQ). absent: Distended, Firm, Guarding, Rigid - Neurological Exam Neurological Exam: Alert, Awake, Oriented x3 - Psychiatric Exam Psychiatric exam: Normal Affect, Normal Mood - Skin Skin Exam: Normal Color, Warm Assessment and Plan - Assessment and Plan (Free Text) Assessment: 51M with pancreatitis of unknown etiology; possible passed gallstone vs EtOH vs hypertriglyceridemia Plan: f/u today's lipase and TG levels cont aggressive hydration pain meds PRN OK to resume CLD w/ pancreatitis; do not advance further til pain resolves would recommend discontinuation of antibiotics as etiology unlikely infectious will d/w Dr Anna Farias, PGY3
[2017-03-14 07:42] LABS: LIPASE 4111 U/L (23-300)
[2017-03-14 10:06] LABS: HDL CHOLESTEROL 46 MG/DL (30-70)
--- NOTE | 2017-03-14 10:07 | CP.PCM.PN ---
<TeofiloJustatyrajaelyn - Last Filed: 03/14/17 13:51> Subjective - Date & Time of Evaluation Date of Evaluation: 03/14/17 Time of Evaluation: 09:30 - Subjective Subjective: 51 year old male patient with a PMHx significant for gallbladder disease, s/p cholecystectomy, who presents to the ED with the complaint of sudden, severe epigastric abdominal pain that started 2 nights ago. Patient reports that his pain has improved since his admission. Patient denies of any acute overnight events. Denied of any recent F/N/V/C/SOB/CP/diarrhea/constipation/calf pain. Denied of having any new complains at this time. Objective - Vital Signs/Intake and Output Vital Signs (last 24 hours): Temp Pulse Resp BP Pulse Ox 98.7 F 77 18 143/76 95 03/14/17 07:53 03/14/17 07:53 03/14/17 07:53 03/14/17 07:53 03/14/17 07:53 - Medications Medications: Current Medications Hydromorphone HCl (Dilaudid) 0.5 mg IVP Q3H PRN PRN Reason: Pain, Mild (1-3) Last Admin: 03/13/17 15:00 Dose: 0.5 mg Lactated Ringer's (Lactated Ringer's) 1,000 mls @ 250 mls/hr IV .Q4H BETY Last Admin: 03/14/17 08:23 Dose: Not Given Piperacillin Sod/Tazobactam (Sod 3.375 gm/ Sodium Chloride) 100 mls @ 100 mls/ hr IVPB Q6 BETY PRN Reason: Protocol Last Admin: 03/14/17 04:38 Dose: 100 mls/hr Potassium Chloride 10 meq/ (Sodium Chloride) 105 mls @ 105 mls/hr IV Q1 BETY Stop: 03/14/17 12:59 Ondansetron HCl (Zofran Inj) 4 mg IVP Q6 PRN PRN Reason: Nausea/Vomiting - Labs Labs: 03/14/17 05:55 03/14/17 05:55 - Constitutional Appears: Well, Non-toxic, No Acute Distress - Head Exam Head Exam: ATRAUMATIC - Eye Exam Eye Exam: Normal appearance - ENT Exam ENT Exam: Normal Exam - Neck Exam Neck Exam: Full ROM - Respiratory Exam Respiratory Exam: Clear to Ausculation Bilateral, NORMAL BREATHING PATTERN - Cardiovascular Exam Cardiovascular Exam: REGULAR RHYTHM, +S1, +S2 - GI/Abdominal Exam GI & Abdominal Exam: Soft, Normal Bowel Sounds - Rectal Exam Rectal Exam: Deferred - Extremities Exam Extremities Exam: Full ROM, Normal Capillary Refill, Normal Inspection. absent : Calf Tenderness, Joint Swelling, Pedal Edema, Tenderness - Back Exam Back Exam: Full ROM, NORMAL INSPECTION - Neurological Exam Neurological Exam: Alert, Awake, Oriented x3 - Psychiatric Exam Psychiatric exam: Normal Affect, Normal Mood - Skin Skin Exam: Intact, Normal Color, Warm Assessment and Plan - Assessment and Plan (Free Text) Assessment: 51 year male patient was evaluated for acute pancreatitis, with concern for possible developing cholangitis, r/o gallstone pancreatitis, r/o pancreatic cancer causing obstruction, other etiologies of pancreatitis Plan: 1). Acute Pancreatitis - General surgeon consultation with Dr. Castillo - recommendations appreciated - monitor lipase and TG levels - cont aggressive hydration - GI consult - recommendations appreciated - Vigorous IV hydration - Clear liquid diet as per surgery - Follow up blood cultures - Lactated ringer's 250 cc/hour as per surgery - MRCP - No evidence of CBD stone - Abdominal US: - hepatomegaly - Zosyn 3.375 mg IVPB - stopped - Dilaudid 0.5 mg IV q3h PRN for severe pain - Triglyceride levels 2). DVT prophylaxis - SCDs (heparin not initialized in the case of surgery) - ambulating <Constantino Mueller - Last Filed: 03/14/17 14:13> Objective - Vital Signs/Intake and Output Vital Signs (last 24 hours): Temp Pulse Resp BP Pulse Ox 98.7 F 77 18 143/76 95 03/14/17 07:53 03/14/17 07:53 03/14/17 07:53 03/14/17 07:53 03/14/17 07:53 - Medications Medications: Current Medications Hydromorphone HCl (Dilaudid) 0.5 mg IVP Q3H PRN PRN Reason: Pain, Mild (1-3) Last Admin: 03/13/17 15:00 Dose: 0.5 mg Lactated Ringer's (Lactated Ringer's) 1,000 mls @ 250 mls/hr IV .Q4H BETY Last Admin: 03/14/17 10:19 Dose: 250 mls/hr Ondansetron HCl (Zofran Inj) 4 mg IVP Q6 PRN PRN Reason: Nausea/Vomiting - Labs Labs: 03/14/17 05:55 03/14/17 05:55 Assessment and Plan - Assessment and Plan (Free Text) Plan: ATTENDING ATTESTATION: Patient was seen and examined. I discussed the case with the resident and agree with the findings and plan as documented in the residents note. 3) Hypokalemia 3.2 IV supplementation given this AM Recheck tomorrow AM Clear liquid diet for now May be able to be discharged 03/14 or 03/15 if pain improves and diet advanced to solids and tolerating. No evidence of choledocholithiasis on MRCP- likely had retained stone that passed, as evidenced by precipitous fall of lipase.
[2017-03-14 10:17] LABS: LDL CHOLESTEROL 71 mg/dL (0-129)
[2017-03-14 17:25] LABS: BARBITURATES, UR NEGATIVE (NEGATIVE); BENZODIAZEPINES, UR NEGATIVE (NEGATIVE); OPIATES, UR NEGATIVE (NEGATIVE); PHENCYCLIDINE, UR NEGATIVE (NEGATIVE)
[2017-03-15] MEDS: Lactated Ringer's 1,000 ML IV SCH ×5 (03:00→20:11)
--- NOTE | 2017-03-15 09:52 | CP.PCM.PN ---
Subjective - Date & Time of Evaluation Date of Evaluation: 03/15/17 Time of Evaluation: 11:00 - Subjective Subjective: Patient seen and examined bedside. Feeling better. Hemodynamically stable, afebrile. Still with some intermittent , short duration and low intensity ( 4/ 10 ) abdominal pain to LUQ, epigastric area and LLQ. Tolerated liquid diet No acute issues overnight, no nausea no vomiting Lipase trending down to 845 from [address] Endy 2.9 AST/ alt 80/263 Objective - Vital Signs/Intake and Output Vital Signs (last 24 hours): Temp Pulse Resp BP Pulse Ox 98.9 F 78 20 137/82 94 L 03/15/17 08:22 03/15/17 08:22 03/15/17 08:22 03/15/17 08:22 03/15/17 08:22 - Medications Medications: Current Medications Hydromorphone HCl (Dilaudid) 0.5 mg IVP Q3H PRN PRN Reason: Pain, Mild (1-3) Last Admin: 03/13/17 15:00 Dose: 0.5 mg Lactated Ringer's (Lactated Ringer's) 1,000 mls @ 250 mls/hr IV .Q4H BETY Last Admin: 03/15/17 08:51 Dose: 250 mls/hr Ondansetron HCl (Zofran Inj) 4 mg IVP Q6 PRN PRN Reason: Nausea/Vomiting - Labs Labs: 03/14/17 05:55 03/14/17 05:55 - Constitutional Appears: Non-toxic, No Acute Distress - Head Exam Head Exam: ATRAUMATIC, NORMAL INSPECTION, NORMOCEPHALIC - Eye Exam Eye Exam: EOMI, Normal appearance, PERRL Pupil Exam: NORMAL ACCOMODATION - ENT Exam ENT Exam: Mucous Membranes Moist, Normal Exam - Neck Exam Neck Exam: Full ROM, Normal Inspection - Respiratory Exam Respiratory Exam: Clear to Ausculation Bilateral, NORMAL BREATHING PATTERN. absent: Rales, Rhonchi, Wheezes - Cardiovascular Exam Cardiovascular Exam: REGULAR RHYTHM, RRR, +S1, +S2. absent: JVD - GI/Abdominal Exam GI & Abdominal Exam: Soft, Tenderness (with deep palpation to epigastric , LUQ and LLQ), Normal Bowel Sounds. absent: Distended, Guarding, Rebound - Rectal Exam Rectal Exam: Deferred - Extremities Exam Extremities Exam: Full ROM, Normal Capillary Refill, Normal Inspection. absent : Calf Tenderness, Pedal Edema - Back Exam Back Exam: NORMAL INSPECTION - Neurological Exam Neurological Exam: Alert, Awake, CN II-XII Intact, Normal Gait, Oriented x3 - Psychiatric Exam Psychiatric exam: Normal Affect, Normal Mood - Skin Skin Exam: Dry, Intact, Normal Color, Warm Assessment and Plan - Assessment and Plan (Free Text) Assessment: 51 year old male with a past medical history significant for gallbladder disease , s/p cholecystectomy presented to the ED with the complaint of sudden, severe epigastric abdominal pain .The pain is sharp, constant, and radiates to his back. In the ED, the patient's vitals were stable. Laboratory results revealed a normal WBC, elevated Total bilirubin of 3.6, AST of 749, ALT of 716, Alkaline phosphatase of 217, [place] [address]. Abdominal ultrasound revealed Enlarged liver of 19.5 cm with normal echogenicity of the liver parenchyma. Dr. Castillo, surgeon, was consulted from the ED along with Dr. Dowd, GI. MRCP showed no CBD stone Patient was damitted for acute pancreatitis, kept NPO , started IVF and Zosyn. Clinically patient showed improvement , pain improving ,lipase, LFT-s and bilirubin trending down Tolerated liquid diet . 1. Acute Pancreatitis Most likely patient passed a stone MRCP showed no CBD stone LFT-s bilirubin and lipase trending down Surgery and Gi consulted Continue IVF, pain mangement Advance diet to regular Blood culture in 1 bottle reported gram positive cocci in chains. Most likely contamination, since patient is afebrile and WBc normal Will repeat blood cx today 2. Hypokalemia replaced 3 DVT prophylaxis SCDs ambulating
[2017-03-15 11:36] LABS: HEMOGLOBIN 12.9 g/dL (12.0-18.0); MEAN CORPUSCULAR HEMOGLOBIN 30.2 pg (27.0-31.0); MEAN CORPUSCULAR HGB CONC 33.2 g/dL (33.0-37.0); RBC 4.28 Mil/uL (4.40-5.90); RED CELL DISTRIBUTION WIDTH 13.1 % (11.5-14.5); WHITE BLOOD COUNT 9.2 K/uL (4.8-10.8)
[2017-03-15 11:56] LABS: ALBUMIN 3.4 g/dL (3.5-5.0); ALT/SGPT 263 U/L (21-72); AST/SGOT 80 U/L (17-59); BLOOD UREA NITROGEN 6 mg/dl (9-20); CALCIUM 8.7 mg/dL (8.4-10.2); GFR AFRICAN-AMERICAN > 60; GFR NON-AFRICAN AMERICAN > 60; LIPASE 845 U/L (23-300)
--- NOTE | 2017-03-15 12:37 | CP.PCM.PN ---
Subjective - Date & Time of Evaluation Date of Evaluation: 03/15/17 Time of Evaluation: 12:35 - Subjective Subjective: Gen Surg: Dr Castillo Pt S&E. NAEO. Pain significantly improved. tolerating liquids. Denies n/v, f /c. Tbili trending down. Objective - Vital Signs/Intake and Output Vital Signs (last 24 hours): Temp Pulse Resp BP Pulse Ox 98.9 F 78 20 137/82 94 L 03/15/17 08:22 03/15/17 08:22 03/15/17 08:22 03/15/17 08:22 03/15/17 08:22 - Medications Medications: Current Medications Hydromorphone HCl (Dilaudid) 0.5 mg IVP Q3H PRN PRN Reason: Pain, Mild (1-3) Last Admin: 03/13/17 15:00 Dose: 0.5 mg Lactated Ringer's (Lactated Ringer's) 1,000 mls @ 250 mls/hr IV .Q4H BETY Last Admin: 03/15/17 12:04 Dose: 250 mls/hr Ondansetron HCl (Zofran Inj) 4 mg IVP Q6 PRN PRN Reason: Nausea/Vomiting - Labs Labs: 03/14/17 05:55 03/15/17 11:01 - Constitutional Appears: Non-toxic, No Acute Distress - Respiratory Exam Respiratory Exam: absent: Accessory Muscle Use, Respiratory Distress - Cardiovascular Exam Cardiovascular Exam: REGULAR RHYTHM. absent: Tachycardia - GI/Abdominal Exam GI & Abdominal Exam: Soft, Tenderness (epigastric but improved). absent: Distended, Firm - Neurological Exam Neurological Exam: Alert, Awake, Oriented x3 Assessment and Plan - Assessment and Plan (Free Text) Assessment: 51M with pancreatitis 2/2 either passed gallstone or EtOH; unclear but resolving Plan: ADAT no need to trend lipase - follow clinically pt symptoms resolving no need for surgical intervention - clear for discharge from surgical standpoint please reconsult as necessary d/w Dr Anna Farias, PGY3
[2017-03-15] MEDS: HYDROmorphone 0.5 mg/0.5 ml ISec IVP PRN (13:55)
[2017-03-16] MEDS: Lactated Ringer's 1,000 ML IV SCH ×3 (04:00→08:41)
--- NOTE | 2017-03-16 07:25 | CP.PCM.PN ---
Subjective - Date & Time of Evaluation Date of Evaluation: 03/16/17 Time of Evaluation: 07:30 - Subjective Subjective: General Surgery Note for Dr Castillo Patient seen and examined at bedside. No acute event overnight. Patient denies any pain. Denies nausea/vomtinig. Tolerating diet. Passing gas and having flatus. Patient has no complaints at this time. Objective - Vital Signs/Intake and Output Vital Signs (last 24 hours): Temp Pulse Resp BP Pulse Ox 99.1 F 86 19 117/66 98 03/16/17 00:00 03/16/17 00:00 03/16/17 00:00 03/16/17 00:00 03/16/17 00:00 - Medications Medications: Current Medications Hydromorphone HCl (Dilaudid) 0.5 mg IVP Q3H PRN PRN Reason: Pain, Mild (1-3) Last Admin: 03/15/17 13:55 Dose: 0.5 mg Lactated Ringer's (Lactated Ringer's) 1,000 mls @ 250 mls/hr IV .Q4H BETY Last Admin: 03/16/17 04:00 Dose: 250 mls/hr Ondansetron HCl (Zofran Inj) 4 mg IVP Q6 PRN PRN Reason: Nausea/Vomiting - Labs Labs: 03/15/17 11:01 03/15/17 11:01 - Constitutional Appears: No Acute Distress - Head Exam Head Exam: ATRAUMATIC, NORMOCEPHALIC - ENT Exam ENT Exam: Mucous Membranes Moist - Respiratory Exam Respiratory Exam: NORMAL BREATHING PATTERN - Cardiovascular Exam Cardiovascular Exam: REGULAR RHYTHM - GI/Abdominal Exam GI & Abdominal Exam: Soft, Normal Bowel Sounds. absent: Distended, Guarding, Rigid, Tenderness, Rebound - Neurological Exam Neurological Exam: Alert, Awake, Oriented x3 - Psychiatric Exam Psychiatric exam: Normal Affect, Normal Mood - Skin Skin Exam: Dry, Intact, Normal Color, Warm Assessment and Plan - Assessment and Plan (Free Text) Plan: 51M with acute pancreatitis Tolerating regular diet No surgical intervention needed at this time Clear for discharge from surgical standpoint Discussed with Dr Anna Cordova PGY1
[2017-03-16 07:37] LABS: HEMOGLOBIN 12.4 g/dL (12.0-18.0); MEAN CELL VOLUME 90.1 fl (80.0-94.0); MEAN CORPUSCULAR HGB CONC 33.3 g/dL (33.0-37.0); RBC 4.13 Mil/uL (4.40-5.90)
[2017-03-16 08:11] LABS: ALB/GLOB RATIO 0.9 (1.0-2.1); ALBUMIN 3.3 g/dL (3.5-5.0); ALT/SGPT 196 U/L (21-72); AST/SGOT 52 U/L (17-59); BLOOD UREA NITROGEN 6 mg/dl (9-20); CALCIUM 8.4 mg/dL (8.4-10.2); GFR AFRICAN-AMERICAN > 60; GFR NON-AFRICAN AMERICAN > 60; LIPASE 722 U/L (23-300)
[2017-03-16 08:23] VITALS: BP 135/84; PULSE 75; RESP 20; TEMP 98.5; O2SAT 95
--- NOTE | 2017-03-16 10:47 | CP.PCM.DIS ---
Provider - Provider Date of Admission: 03/13/17 10:18 Attending physician: Maikel Mueller DO Primary care physician: None Consults: Surgery consult GI consult Time Spent in preparation of Discharge (in minutes): 20 Hospital Course - Lab Results Lab Results: Micro Results 03/13/17 10:25 Blood Blood Culture - Preliminary NO GROWTH AFTER 48 HOURS 03/13/17 10:29 Blood S.aureus & Coag-Neg Staph PNA FISH - Preliminary 03/13/17 10:29 Blood Blood Culture - Preliminary Gram Positive Cocci 03/13/17 10:29 Blood Gram Stain - Final Most Recent Lab Values WBC 9.0 K/uL (4.8-10.8) 03/16/17 06:30 RBC 4.13 Mil/uL (4.40-5.90) L 03/16/17 06:30 Hgb 12.4 g/dL (12.0-18.0) 03/16/17 06:30 Hct 37.2 % (35.0-51.0) 03/16/17 06:30 MCV 90.1 fl (80.0-94.0) 03/16/17 06:30 MCH 30.0 pg (27.0-31.0) 03/16/17 06:30 MCHC 33.3 g/dL (33.0-37.0) 03/16/17 06:30 RDW 13.0 % (11.5-14.5) 03/16/17 06:30 Plt Count 145 K/uL (130-400) 03/16/17 06:30 MPV 9.4 fl (7.2-11.7) 03/13/17 05:50 Neut % (Auto) 83.6 % (50.0-75.0) H 03/13/17 05:50 Lymph % (Auto) 11.3 % (20.0-40.0) L 03/13/17 05:50 [place] % (Auto) 5.0 % (0.0-10.0) 03/13/17 05:50 Eos % (Auto) 0.0 % (0.0-4.0) 03/13/17 05:50 Baso % (Auto) 0.1 % (0.0-2.0) 03/13/17 05:50 Neut # 8.0 K/uL (1.8-7.0) H 03/13/17 05:50 Lymph # 1.1 K/uL (1.0-4.3) 03/13/17 05:50 Preston # 0.5 K/uL (0.0-0.8) 03/13/17 05:50 Eos # 0.0 K/uL (0.0-0.7) 03/13/17 05:50 Baso # 0.0 K/uL (0.0-0.2) 03/13/17 05:50 pO2 39 mm/Hg (30-55) 03/13/17 10:30 VBG pH 7.40 (7.32-7.43) 03/13/17 10:30 VBG pCO2 46 mmHg (40-60) 03/13/17 10:30 VBG HCO3 26.6 mmol/L 03/13/17 10:30 VBG Total CO2 29.9 mmol/L (22-28) H 03/13/17 10:30 VBG O2 Sat (Calc) 82.3 % (40-65) H 03/13/17 10:30 VBG Base Excess 3.0 mmol/L (0.0-2.0) H 03/13/17 10:30 VBG Potassium 3.7 mmol/L (3.6-5.2) 03/13/17 10:30 A-a O2 Difference 53.0 mm/Hg 03/13/17 10:30 Sodium 137.0 mmol/L (132-148) 03/13/17 10:30 Chloride 106.0 mmol/L (98-107) 03/13/17 10:30 Glucose 128 mg/dL (75-110) H 03/13/17 10:30 Lactate 0.9 mmol/L (0.7-2.1) 03/13/17 10:30 FiO2 21.0 % 03/13/17 10:30 Crit Value Called To Aime padilla 03/13/17 10:30 Crit Value Called By 15 03/13/17 10:30 Crit Value Read Back Y 03/13/17 10:30 Blood Gas Notified Time 1045 03/13/17 10:30 Sodium 143 mmol/l (132-148) 03/16/17 06:30 Potassium 3.5 MMOL/L (3.6-5.0) L 03/16/17 06:30 Chloride 106 mmol/L (98-107) 03/16/17 06:30 Carbon Dioxide 28 mmol/L (22-30) 03/16/17 06:30 Anion Gap 13 (10-20) 03/16/17 06:30 BUN 6 mg/dl (9-20) L 03/16/17 06:30 Creatinine 0.7 mg/dl (0.8-1.5) L 03/16/17 06:30 Est GFR ( Amer) > 60 03/16/17 06:30 Est GFR (Non-Af Amer) > 60 03/16/17 06:30 Random Glucose 102 mg/dL (75-110) 03/16/17 06:30 Calcium 8.4 mg/dL (8.4-10.2) 03/16/17 06:30 Total Bilirubin 1.7 mg/dl (0.2-1.3) H 03/16/17 06:30 AST 52 U/L (17-59) 03/16/17 06:30 ALT 196 U/L (21-72) H D 03/16/17 06:30 Alkaline Phosphatase 164 U/L (38-126) H 03/16/17 06:30 Total Protein 6.8 G/DL (6.3-8.2) 03/16/17 06:30 Albumin 3.3 g/dL (3.5-5.0) L 03/16/17 06:30 Globulin 3.5 gm/dL (2.2-3.9) 03/16/17 06:30 Albumin/Globulin Ratio 0.9 (1.0-2.1) L 03/16/17 06:30 Triglycerides 103 mg/DL (0-149) 03/14/17 09:40 Cholesterol 145 mg/dL (0-199) 03/14/17 09:40 LDL Cholesterol Direct 71 mg/dL (0-129) 03/14/17 09:40 HDL Cholesterol 46 MG/DL (30-70) 03/14/17 09:40 Lipase 722 U/L (23-300) H 03/16/17 06:30 Venous Blood Potassium 3.7 mmol/L (3.6-5.2) 03/13/17 10:30 Urine Color Unique (YELLOW) 03/13/17 05:50 Urine Clarity Cloudy (Clear) 03/13/17 05:50 Urine pH 6.0 (5.0-8.0) 03/13/17 05:50 Ur Specific [place] 1.015 (1.003-1.030) 03/13/17 05:50 Urine Protein 30 mg/dL (NEGATIVE) 03/13/17 05:50 Urine Glucose (UA) Neg mg/dL (Normal) 03/13/17 05:50 Urine Ketones Negative mg/dL (NEGATIVE) 03/13/17 05:50 Urine Blood Moderate (NEGATIVE) 03/13/17 05:50 Urine Nitrate Negative (NEGATIVE) 03/13/17 05:50 Urine Bilirubin Negative (NEGATIVE) 03/13/17 05:50 Urine Urobilinogen 2.0 mg/dL (0.2-1.0) 03/13/17 05:50 Ur Leukocyte Esterase Neg [place]/uL (Negative) 03/13/17 05:50 Urine RBC (Auto) 3 /hpf (0-3) 03/13/17 05:50 Urine Microscopic WBC 2 /hpf (0-5) 03/13/17 05:50 Urine Bacteria Occ (<OCC) H 03/13/17 05:50 Urine Opiates Screen Negative (NEGATIVE) 03/14/17 16:56 Urine Methadone Screen Negative (NEGATIVE) 03/14/17 16:56 Ur Barbiturates Screen Negative (NEGATIVE) 03/14/17 16:56 Ur Phencyclidine Scrn Negative (NEGATIVE) 03/14/17 16:56 Ur Amphetamines Screen Negative (NEGATIVE) 03/14/17 16:56 U Benzodiazepines Scrn Negative (NEGATIVE) 03/14/17 16:56 U Oth Cocaine Metabols Negative (NEGATIVE) 03/14/17 16:56 U Cannabinoids Screen Negative (NEGATIVE) 03/14/17 16:56 HIV-1 Ab Rapid Screen Non reactive (NON REAC) 03/14/17 08:40 - Hospital Course Hospital Course: 51 year old male with a past medical history significant for gallbladder disease , s/p cholecystectomy presented to the ED with the complaint of sudden, severe epigastric abdominal pain .The pain is sharp, constant, and radiates to his back. In the ED, the patient's vitals were stable. Laboratory results revealed a normal WBC, elevated Total bilirubin of 3.6, AST of 749, ALT of 716, Alkaline phosphatase of 217, [place] [address]. Abdominal ultrasound revealed Enlarged liver of 19.5 cm with normal echogenicity of the liver parenchyma. Dr. Castillo, surgeon, was consulted from the ED along with Dr. Dowd, GI. MRCP showed no CBD stone Patient was admitted for acute pancreatitis most likely secondary to passed stone, kept NPO , started IVF and Zosyn. Clinically patient showed improvement , resolved ,lipase, LFT-s and bilirubin trending down and tolerating diet Cleared by surgery for discharge [employer] patient on low fat low cholestolerol diet , good PO fluid intake. Avoid ETOh use Return to hospital if symptoms worsen follow up with [facility] in 1 week 1. Acute gallstone Pancreatitis Most likely patient passed a stone MRCP showed no CBD stone LFT-s bilirubin and lipase trending down Surgery and GiIconsulted Received IVF, pain management Advance diet to regular and tolerating , pain resolved Blood culture in 1 bottle reported gram positive cocci in chains. Most likely contamination, since patient is afebrile and WBc normal 2. Hypokalemia replaced 3 DVT prophylaxis SCDs ambulating Discharge Exam - Head Exam Head Exam: ATRAUMATIC, NORMAL INSPECTION, NORMOCEPHALIC - Eye Exam Eye Exam: EOMI, Normal appearance, PERRL Pupil Exam: NORMAL ACCOMODATION - ENT Exam ENT Exam: Mucous Membranes Moist, Normal Exam - Neck Exam Neck exam: Full Rom, Normal Inspection - Respiratory Exam Respiratory Exam: Clear to PA & Lateral, NORMAL BREATHING PATTERN. absent: Rales, Rhonchi, Wheezes - Cardiovascular Exam Cardiovascular Exam: REGULAR RHYTHM, RRR, +S1, +S2. absent: JVD - GI/Abdominal Exam GI & Abdominal Exam: Normal Bowel Sounds, Soft. absent: Distended, Guarding, Rebound, Tenderness - Rectal Exam Rectal Exam: Deferred - Extremities Exam Extremities exam: normal capillary refill, normal inspection, pedal pulses present - Back Exam Back exam: NORMAL INSPECTION - Neurological Exam Neurological exam: Alert, CN II-XII Intact, Oriented x3, Reflexes Normal - Psychiatric Exam Psychiatric exam: Normal Affect, Normal Mood - Skin Skin Exam: Dry, Intact, Normal Color, Warm Discharge Plan - Follow Up Plan Condition: STABLE Disposition: HOME/ ROUTINE Patient education suggested?: Yes Instructions: Pancreatitis (DC) Referrals: Baljinder Castillo MD [Staff Provider] - [facility] [Outside]
== END 2017-03-16 12:18 | disposition home or self-care (01) | DRG 204 ==
LOC: H.ER 04:38 → H.ERHOLD 10:18 → H.MEDSURG1 12:15
PROVIDERS: ADMIT Internal Medicine; ATTEND Internal Medicine
PROC: 3E0234Z Introduction of Serum, Toxoid and Vaccine into Muscle, Percutaneous Approach (ICD-10-PCS; principal; 2017-03-13)
DX: K85.10 Biliary acute pancreatitis without necrosis or infection (principal); E87.6 Hypokalemia; Z90.49 Acquired absence of other specified parts of digestive tract; K64.8 Other hemorrhoids; R19.7 Diarrhea, unspecified; R74.8 Abnormal levels of other serum enzymes; Z23 Encounter for immunization